=== PATIENT | male | born 1955 | race Caucasian/White ===

== ENCOUNTER 2023-06-15 09:36 | Outpatient (OUT) | payer MEDICARE, SELFPAY ==
--- NOTE | 2023-06-15 09:37 | VEIN_ITS ---
Patient Name: DEE VINES MR#: [id number] : 1955 Exam Date: 06/15/2023 Ordering Doctor: Non-Staff Physician RADIOLOGY REPORT PROCEDURE: [facility] - OFFICE VISIT INITIAL COMPARISON: None. PROGRESS NOTES: 68-year-old male who presents with a 20 year history of lower extremity pain swelling and extensive varicose veins. The patient's left leg is worse than the right. The patient complains of pain and swelling. The patient's symptoms are exacerbated by prolonged sitting and standing and partially relieved by rest, leg elevation, exercise and compression stockings. The patient does exercise at least 3 times per week. The patient denies any signs and symptoms to suggest arterial ischemia. The patient describes a family history significant for varicose veins in his mother. Type 2 diabetes in brother. Cancer heart disease in his father. Occasional social alcohol use. The patient has never smoked. No illicit drug use. Prior medical history significant for hypertension, hypercholesterolemia. Patient has had a cholecystectomy. No history of deep venous thrombus or pulmonary embolus. See separate history and physical for medication list. No prior treatment for varicose or spider veins. Nursing notes were reviewed. After history and physical exam I discussed at length the pathophysiology of venous hypertension and possible treatments, therapies and strategies available. We discussed at length the importance of elevating the lower extremities above the level of the heart, increased physical activity and compression stocking use. We discussed alternatives including surgical ligation and stripping and phlebectomy. We discussed intravenous laser ablation, micro foam chemical ablation and injection sclerotherapy at length. Risks, benefits and alternatives were discussed. The patient's questions were answered Ultrasound venous reflux study performed the same day was discussed at length with the patient. The report demonstrates moderate to severe bilateral great saphenous vein venous insufficiency. Moderate bilateral small saphenous vein venous insufficiency. Bilateral incompetent perforating veins. Bilateral incompetent varicose veins PHYSICAL EXAM: The right leg demonstrates moderate scattered varicose reticular and spider veins along the thigh, lower leg, ankle and foot. Mild hemosiderin staining. Mild subcutaneous edema. No active ulceration. The left leg demonstrates extensive scattered varicose, reticular and spider veins along the thigh, lower leg, ankle and foot, most significant along the medial lower leg. Moderate hemosiderin staining. Mild subcutaneous edema. No active ulceration. Both thighs, legs and feet were symmetrically warm to the touch. Good posterior tibial and dorsalis pedis pulses were present bilaterally. VEIN/VC Facility EST Comprehensive IMPRESSION: 1. Bilateral great saphenous , bilateral small saphenous and bilateral perforating venous insufficiency 2. Moderate right and severe left incompetent lower extremity varicose veins 3. Mild bilateral lower extremity subcutaneous edema 4. No definite flow significant arterial disease 5. CEAP: C4a, Ep, Asp, Pr PLAN: 1. Endovenous laser ablation left great saphenous vein followed by right great saphenous vein followed by left small saphenous vein 2. Micro foam chemical ablation bilateral incompetent varicose veins 3. Long-term use of bilateral knee or thigh-high 20-30 mm compression stockings 4. Elevated legs and continued physical activity for symptomatic relief Nurse notes, history and physical were reviewed and confirmed, see attached forms. The nurse was present throughout the physical exam and consultation Dictated by: Kota Crook MD on 06/15/2023 at 12:17 Approved by: Kota Crook MD on 06/15/2023 at 12:22
--- NOTE | 2023-06-15 09:38 | VEIN_ITS ---
Patient Name: DEE VINES MR#: [id number] : 1955 Exam Date: 06/15/2023 Ordering Doctor: NON-STAFF PHYSICIAN RADIOLOGY REPORT PROCEDURE: VC EXT VENOUS REFLUX ROHITH LMTD COMPARISON: None. INDICATIONS: I83.813 Bilateral painful varicose veins TECHNIQUE: Duplex imaging of the lower extremity to assess the deep and superficial venous system for the presence of deep or superficial venous incompetence and to document the location and severity of disease. The study includes evaluation of the great saphenous vein (GSV), anterior accessory saphenous vein (AASV) and small saphenous vein (SSV). Patient scanned in reverse Trendelenburg and standing. FINDINGS: RIGHT LOWER EXTREMITY: Saphenofemoral Junction Reflux: Yes 10.2mm 3.4 sec GSV: Diam (mm) Reflux/ Time (sec) Proximal Thigh 8.5 Yes 2.6 Mid Thigh 6.5 Yes 2.2 Distal Thigh 7.1 Yes 1.5 Prox Calf 4.5 Yes 1.8 Mid Calf 3.5 Yes 2.1 Saphenopopliteal Junction Reflux: 4.0mm No SSV: Proximal Calf 2.5 Yes 1.4 Mid Calf 3.6 Yes 1.1 AASV: Not present Thrombi: No acute or chronic thrombus visualized Compressibility: Normal Flow: Reflux visualized in FV. Preforator: Mid/med calf 1.8mm with 0s reflux. Tech Note: Incompetent GSV. Patent varicose vein medial knee 7.0mm with 2.4s reflux. Patent varicose vein dist/med thigh 8.2mm with 1.4s reflux. LEFT LOWER EXTREMITY: Saphenofemoral Junction Reflux: Yes 13.9 mm 3.7 sec GSV: Diam (mm) Reflux/Time (sec) Proximal Thigh 11.9 Yes 3.2 Mid Thigh 14.5 Yes 3.1 Distal Thigh 9.9 Yes 2.1 Prox Calf 9.5 Yes 2.9 Mid Calf 5.7 Yes 1.0 Saphenopopliteal Junction Relux: 6.0 mm Yes 2.7 SSV: Proximal Calf 5.5 Yes 2.1 Mid Calf 3.8 Yes 1.2 AASV: Not present Thrombi: No acute or chronic thrombus visualized Compressibility: Normal Flow: Reflux visualized in FV. Event Host: Dist/med calf 6.7mm with 1.4s reflux. Mid/med thigh 4.9mm with 2.0s reflux. Tech Note: Incompetent GSV and SSV. Patent varicose vein mid/med calf that extends throughout entire calf measures 11.2mm with 2.9s reflux. Patent varicose vein prox/med calf 14.0mm with 3.7s reflux. CONCLUSION: 1. Moderate to severe bilateral great saphenous vein venous insufficiency with dilatation and saphenofemoral junction reflux 2. Moderate bilateral small saphenous vein venous insufficiency with dilatation 3. Bilateral incompetent perforating veins 4. Bilateral incompetent varicose veins Dictated by: Kota Crook MD on 06/15/2023 at 10:37 Approved by: Kota Crook MD on 06/15/2023 at 10:38
== END 2023-06-15 09:37 | disposition home or self-care (01) ==
PROVIDERS: PCP Radiology Diagnostic Radiology
DX: I83.892 Varicose veins of left lower extremity with other complications (principal)
CPT/HCPCS: 93970; G0463

== ENCOUNTER 2023-06-27 07:41 | Outpatient (OUT) | payer MEDICARE, SELFPAY ==
--- OUTSIDE RECORDS SUMMARY | 2023-06-27 07:43 | XMS_ITS | CCD ---
Author Name Unknown Address [address] [place] [address] Organization [facility] Care Team Providers Care Soloist Dancer Name Role Phone BRITTANIE ZOHRA Unavailable Unavailable VASCHAK, ZOHRA Unavailable Unavailable VASCHAK, ZOHRA Unavailable Unavailable VASCHAK, ZOHRA J Unavailable Unavailable VASCHAK, ZOHRA J Unavailable Unavailable VEDA JOHNSON Unavailable Unavailable VASCHAK, ZOHRA J Unavailable Unavailable VASCHAK, ZOHRA J Unavailable Unavailable VASCHAK, ZOHRA J Unavailable Unavailable VASCHAK, ZOHRA J Unavailable Unavailable VASCHAK, ZOHRA J Unavailable Unavailable VASCHAK, ZOHRA J Unavailable Unavailable VASCHAK, ZOHRA J Unavailable Unavailable VASCHAK, ZOHRA J Unavailable Unavailable VASCHAK, ZOHRA J Unavailable Unavailable VASCHAK, ZOHRA J Unavailable Unavailable VASCHAK, ZOHRA J Unavailable Unavailable VASCHAK, ZOHRA J Unavailable Unavailable VASCHAK, ZOHRA J Unavailable Unavailable VASCHAK, ZOHRA J Unavailable Unavailable VASCHAK, ZOHRA J Unavailable Unavailable VASCHAK, ZOHRA J Unavailable Unavailable VASCHAK, ZOHRA J Unavailable Unavailable VASCHAK, ZOHRA J Unavailable Unavailable VASCHAK, ZOHRA J Unavailable Unavailable VASCHAK, ZOHRA J Unavailable Unavailable Hellen De La O Unavailable DO Zohra Shah Primary Care Provider MD Kvng Grissom Attending Provider Kvng Grissom Attending Unavailable Zohra Shah Primary Care Unavailable Kvng Grissom Admitting Unavailable Zohra Shah Primary Care Unavailable Kvng Grissom Admitting Unavailable Kvng Grissom Attending Unavailable ZOHRA SHAH Attending Unavailable VASCHAK, ZOHRA Popeye Referring Unavailable Allergies Allergy Classification Reported Allergen(s) Allergy Type Date of Onset Reaction(s) Facility (1 source) Penicillins Drug allergy (disorder) 07-02-2019 [facility] Repository Medications Current Medications Medication Drug Class(es) Dates Sig (Normalized) Sig (Original) atorvastatin 40 mg oral tablet (1 source) HMG-CoA Reductase Inhibitor Start: 07-02-2019 take 40 mg by mouth once daily Atorvastatin Active 40 MG PO Daily July 02, 2019 1:00am lisinopril 5 mg oral tablet (1 source) Angiotensin Converting Enzyme Inhibitor Start: 07-02-2019 take 5 mg by mouth once daily Lisinopril Active 5 MG PO Daily July 02, 2019 1:00am Suprep Bowel Prep Kit 17.5-3.13-1.6 GM/180ML (2 sources) Start: 06-25-2019 Suprep Bowel Prep Kit 17.5-3.13-1.6 GM/180ML 177 ML BOTTLE AT 4 PM AND ONE BOTTLE AT 11 PM DAY PRIOR TO PROCEDURE Orally Twice a day for 1 day(s) Jun, Active Problems Active Problems Problem Classification Problem Date Documented Da te Episodic/Chronic Coronary atherosclerosis and other heart disease (2 sources) Atherosclerotic heart disease of [place] coronary artery without angina pectoris; Translations: [Coronary atherosclerosis due to lipid rich plaque] Onset: 02-17-2017 Chronic Coronary atherosclerosis and other heart disease (1 source) Coronary atherosclerosis and other heart disease Onset: 01-24-2017 Essential hypertension (1 source) Essential (primary) hypertension; Translations: [Essential (primary) hypertension] Onset: 01-24-2017 Chronic Essential hypertension (2 sources) Essential hypertension Onset: 01-24-2017 Immunizations and screening for infectious disease (2 sources) Encounter for immunization Onset: 09-24-2021 Resolved: 09-24-2021 Episodic Other connective tissue disease (2 sources) Impingement syndrome of left shoulder; Translations: [Impingement syndrome of left shoulder] Onset: 12-27-2017 Episodic Other gastrointestinal disorders (1 source) Stool DNA-based colorectal cancer screening positive; Translations: [Other fecal abnormalities] 07-02-2019 Episodic Spondylosis; intervertebral disc disorders; other back problems (2 sources) Cervicalgia; Translations: [Cervicalgia] Onset: 12-27-2017 Episodic Unclassified (1 source) Family hx of ischem heart dis and oth dis of the circ sys / Z82.49(ICD-9) Onset: 01-24-2017 Unclassified (1 source) Personal history of nicotine dependence / Z87.891(ICD-9) Onset: 01-24-2017 Unclassified (1 source) Pure hypercholesterolemia, unspecified / E78.00(ICD-9) Onset: 01-24-2017 Unclassified (1 source) Encounter for immunization; Translations: [Encounter for immunization] Onset: 03-08-2022 Unclassified (1 source) Z23 - Encounter for immunization; Translations: [Z23 - Encounter for immunization] Onset: 09-24-2021 Past or Other Problems Problem Classification Problem Date Documented Da te Episodic/Chronic Other lower respiratory disease (1 source) Other forms of dyspnea; Translations: [Other forms of dyspnea] Onset: 02-17-2017 Episodic Results Test Name Value Interpretation Reference Range Facility CARDIAC STRESS TESTon 2016 CARDIAC STRESS TEST [facility] [address] [address] CARDIAC STRESS TESTPATIENT NAME: DEE VINES : 1955MED REC NO: [id number] ROOM:ACCOUNT NO: [id number] ADMISSIONDATE: 02/17/2017PROVIDER: Dee BrisenoATE OF STUDY: 02/17/2017TREADMILL STRESS TESTINDICATION: CHEST [id number] % of maximum predicted heart rate: 157 bpm.85 % of maximum predicted heart rate: 133 bpm.Resting heart rate: 51 bpm.Maximum heart rate achieved: 166 bpm.% of age predicted maximum: 100+ %.Resting blood pressure: 136/82 mmhg.Peak blood pressure: 178/87 mmHg.Mets: 15.3.Total time on treadmill: 13 minutes.Resting EKG: Normal.Stress heart response: Normal response.Blood pressure response: Appropriate.Stress EKGs: Normal.No chest pain during stress.No ischemic Ekg changes.IMPRESSION:NEGATIVE TREADMILL STRESS TEST.THE NUCLEAR SCAN TO FOLLOW.DEE HANCOCKORD: 02/17/2017 10:58:57 MO/BB Normal [facility] NM MYOCARDIAL SPECT REST EXE RCISE OR RXon 02-17-2017 NM MYOCARDIAL SPECT REST EXERCISE OR RX EXAMINATION:MYOCARDIAL PERFUSION IMAGING02/17/2017TECHNIQUE:For the rest study, 11.3 mCi of Tc 99 labeled sestamibi were injected. SPECTimages were acquired.The patient exercised on a treadmill under cardiology supervision. Adequatestress was achieved, percent of maximum heart rate was 105%.After stress, 36.6 mCi of Tc 99 labeled sestamibi were injected. SPECTimages with ECG gating were acquired.COMPARISON:None Available.HISTORY:ORDERING SYSTEM PROVIDED HISTORY: Breathlessness on exertionTECHNOLOGIST PROVIDED HISTORY:Ordering Physician Provided Reason for Exam: Shortness of breathOrdering Physician Provided Reason for Exam: Shortness of BreathAcuity: UnknownType of Exam: UnknownPalpitations, hypertension, family history of heart diseaseFINDINGS:Images interpreted on [employer] system and [employer] software.There is normal distribution of radiotracer throughout the myocardium withoutevidence for a significant reversible or fixed perfusion defect.Perfusion scores are visually adjusted to account for artifact.Summed stress score: 0Summed rest score: 0Summed reversibility score: 0Function:End diastolic volume: 82mLLeft ventricular ejection fraction: 58%Wall motion abnormalities: None.TID score: 0.85 (Scores greater than 1.39 are considered elevated forLexiscan stress with Tc99m)IMPRESSION: 1. No evidence for myocardial ischemia/infarction.2. Calculated left ventricular ejection fraction of 58%.3. No wall motion abnormality.4. Risk stratification: LowNotes concerning risk stratification:Risk stratification incorporates both clinical history and some testingresults. Final risk determination is the responsibility of the orderingprovider as other patient information and test results may increase ordecrease the risk assessment reported for this examination.Risk stratification criteria are adapted from Noninvasive RiskStratification criteria from Garcia et. Al,ACC/AATS/AHA/ASE/ASNC/SCA I/SCCT/STS 2017 Appropriate Use Criteria ForCoronary Revascularization in Patients With Stable Ischemic Heart DiseaseNORTHFIELD CITY [facility] Volume 69, Issue 17October 2016High risk (>3% annual or [place]) 1. Severe resting LV dysfunction (LVEF<35%) not readily explained by non coronary causes 2. Resting perfusionabnormalities greater than 10% of the myocardium in patients without priorhistory or evidence of MI3. Stress-induced perfusion abnormalitiesencumbering greater than or equal to 10% myocardium or stress segmentalscores indicating multiple vascular territories with abnormalities 4.Stress-induced LV dilatation (TID ratio greater than 1.19 for exercise andgreater than 1.39 for regadenoson)Intermediate risk (1% to 3% annual or [place]) 1. Mild/moderate resting LVdysfunction (LVEF 35% to 49%) not readily explained by non coronary causes.2. Resting perfusion abnormalities in 5%-9.9% of the myocardium in patientswithout a history or prior evidence of [place] 3. Stress-induced perfusionabnormality encumbering 5%-9.9% of the myocardium or stress segmental scoresindicating 1 vascular territory with abnormalities but without LV dilation 4.Small wall motion abnormality involving 1-2 segments and only 1 coronary bed.Low Risk (Less than 1% annual or [place]) 1. Normal or small myocardialperfusion defect at rest or with stress encumbering less than 5% of themyocardium.Interpreted by:ALEX Marleyigned by:Jesús Caro MD02/17/17Final result Normal [facility] OVER READ - NCon 01-24-2017 OVER READ - NC DATE OF EXAM: Jan 24 2017 2:50PMCLINICAL HISTORY/ Name: ISI VINESTUDY:OVER READ- NC; 01/24/2017 2:50 pmINDICATION:score. Hypertension. Family history of heart disease. Former smoker. Screening.COMPARISON:None. CESSION NUMBER(S):[id number] CLINICIAN:ZOHRA SALGUERO:Contiguous unenhanced axial images were obtained through the mid chest for calcium score evaluation. Calcium score portion will be interpreted separately. Images are submitted for over-read.FINDINGS:No lymphadenopathy is seen. No pericardial effusion. Included esophageal segment is unremarkable. Included portion of the upper abdomen is unremarkable. Minimal basilar atelectasis is present. No pleural effusion or pneumothorax. Minimal anterior endplate spurring present in the lower thoracic spine.CONCLUSION: IMPRESSION:No significant incidental findings.This interpretation, provided by the radiologists of [facility], excludes evaluation of the cardiovascular system, which iscovered in a separate report issued by the ordering cardiologists. The radiologists of [facility] have no responsibilityfor evaluating the structures of the cardiovascular system. Normal [facility] Healthcar e Encounters Encounter Date Encounter Type Care Provider Facility Start: 05-24-2023 End: 05-24-2023 ambulatory ZOHRA SHAH Not Available Start: 03-08-2022 End: 03-08-2022 ambulatory Zohra Rodgersguerlinenigel Facility:[facility] Start: 03-08-2022 End: 03-08-2022 Patient encounter procedure DO Zohra Shah Work Phone: [facility] Start: 03-08-2022 ([facility] C Vac) [facility] Co vid Vaccine [facility] Start: 03-08-2022 End: 03-08-2022 ambulatory DO Zohra Shah Work Phone: [facility] Work Phone: Start: 09-24-2021 ([facility] C Vac) [facility] Co vid Vaccine Hellen [facility] Start: 09-24-2021 End: 09-24-2021 ambulatory Kvng Grissom [facility] [employer] Other Start: 01-26-2018 End: 01-27-2018 Patient encounter [facility] Start: 01-24-2018 End: 01-25-2018 Patient encounter [facility] Start: 01-12-2018 End: 01-13-2018 Patient encounter VEDA JOHNSON [facility] Start: 01-09-2018 End: 01-10-2018 Patient encounter [facility] Start: 01-05-2018 End: 01-06-2018 Patient encounter [facility] Start: 01-03-2018 End: 01-04-2018 Patient encounter GOLE[facility] Start: 12-27-2017 End: 12-28-2017 Patient encounter [facility] Start: 02-17-2017 End: 02-18-2017 Patient encounter [facility] Start: 01-24-2017 Ambulatory ZOHRA RODGERSGUERLINENigel Facility :[id number] Start: 01-24-2017 Ambulatory Facility:[id number] Procedures Date Procedure Procedure Detail Performing Clinician Start: 02-20-2017 STRESS TEST REPORT MANA SHAH Start: 02-17-2017 Myocardial spect mul tiple studies ZOHRA SHAH Start: 02-17-2017 (GXT) STRESS TEST EX ERCISE W OUT MYOVIEW ZOHRA SHAH Immunizations Immunization Date Immunization Notes Care Provider Fa cility 03-08-2022 COVID-19 Pfizer (bivalent) Hellen De La O Other [facility] Other 09-24-2021 COVID-19 Moderna Hellen De La O Other [facility] Other Payers Date Payer Category Payer Self-pay [id number] 2021 Unknown [id number] 2018 Medicare [id number] 2014 Unknown [id number] 1955 Unknown [id number] Private Health Insurance [facility] [id number] Unknown CACLIUM SCROING Unknown [id number] Unknown [id number] Social History Date Type Detail Facility Sex Assigned At [facility] [employer] Other Start: [facility]-02-[facility] Start: 1955 Sex Assigned At Male F [facility] Evaluation note 03-08-2022 Note Date & Type Note Facility 03-08-2022 Evaluation note Encounter Date Diagnosis Assessment Notes Feb, Encounter for immunization (ICD-10 - Z23) Patient presents for COVID-19 vaccination BOOSTER. Pre-screening form answers evaluated with patient. Patient denies current illness or allergic reaction to component of COVID-19 vaccine. Patient provided with current copy of EUA. [facility] Other Evaluation note 09-24-2021 Note Date & Type Note Facility 09-24-2021 Evaluation note Encounter Date Diagnosis Assessment Notes Sep, Encounter for immunization (ICD-10 - Z23) Patient presents for COVID-19 vaccination BOOSTER. Pre-screening form answers evaluated with patient. Patient denies current illness or allergic reaction to component of COVID-19 vaccine. Patient provided with current copy of EUA. [facility] Other Evaluation note Note Date & Type Note Facility Evaluation note No assessment information availa [facility] Work Phone: Summary Purpose Family History No Family History Records Found Relationship Condition Age at Onset Recorded Date/T kaleb brother Diabetes mellitus Unknown father Hypertension Unknown Not Specified Hypertension Unknown Advance Directives No Advanced Directives Records Found Advance Directive Response Recorded Date/ Time Advance Directives No December 26 9:52am Additional Source Comments (unrecognized sect ion and content) No Status Records FoundNo Status Records FoundNo Status Records FoundNo Status Records FoundNo Status Records Found INFORMATION SOURCE (unrecogn ized section and content) DATE CREATED AUTHOR 12/06/2017 [facility] DATE CREATED AUTHOR AUTHOR'S ORGANIZ ATION 12/06/2017 [facility] DATE CREATED AUTHOR AUTHOR'S ORGANIZ ATION 01/27/2018 [facility] DATE CREATED AUTHOR AUTHOR'S ORGANIZ ATION 03/15/2022 [facility] DATE CREATED AUTHOR AUTHOR'S ORGANIZ ATION 05/26/2023 [facility] EPIC REASON FOR VISIT (unrecogniz ed section and content) MODERNA VACCINE BOOSTER-2PFI ZER BIVALENT BOOSTER Care Teams (unrecognized sec tion and content) Team Status: Inactive Member Role Status Dates Zohra Shah DO Primary Care Provider Active Kvng Grissom MD Attending Provider Active Team Status: Active Member Role Status Dates Zohra Shah DO Primary Care Provider Active Goals (unrecognized section and content) Goals may be documented in a n alternate section FOR RECORDS PERTAINING TO PATIENTS WHO ARE OR HAVE BEEN ENROLLED IN A CHEMICAL DEPENDENCY/SUBSTANCEABUSE PROGRAM, SOME INFORMATION MAY BE OMITTED. This clinical summary was aggregated from multiple sources. Caution should be exercised in using it in the provision of clinical care. This summary normalizes information from multiple sources, and as a consequence, information in this document may materially change the coding, format and clinical context of patient data. In addition, data may be omitted in some cases. CLINICAL DECISIONS SHOULD BE BASED ON THE PRIMARY CLINICAL RECORDS. [facility] [employer] [facility]. provides no warranty or guarantee of the accuracy or completeness of information in this document.
--- NOTE | 2023-06-27 07:45 | VEIN_ITS ---
[address] [address] Patient Name: DEE VINES MRN: [id number] date: 1955 Sex: M Assigned Patient Location: Current Patient Location: Accession/Order Number: [id number] Exam Date: 06/27/2023 07:54 Report Date: 06/27/2023 08:51 At the request of: NORBERTO FLETCHER Procedure: VC Endovenous Ablation 1VeinLT EXAMINATION: VC Endovenous Ablation 1Vein right great saphenous vein HISTORY: Pain due to varicose veins of bilateral legs I83.813 COMPARISON: No relevant comparison available. TECHNIQUE: The risks and benefits of the procedure had been previously discussed, and were rediscussed at length. Informed written consent was obtained. Arelis Suazo and Noman Francis assisted. Time out procedure was performed. The left lower extremity was prepared and draped in the usual sterile fashion to allow knee flexion in the sterile field. Duplex ultrasound probe was draped in a sterile cover, sterile transmission gel was used. Venous mapping was performed with the areas of dilation and large tributaries marked. The total length was 44 cm from the entry 6 cm below the knee to 3 cm below the saphenofemoral junction. The great saphenous vein below this area was serpiginous and not amenable to laser ablation. The diameter of the greater saphenous vein ranged from 10-12 mm. A 30 gauge needle and 1% buffered lidocaine was used to anesthetize the entry site. A 4 mm incision was made with a scalpel and the saphenous vein was entered percutaneously under direct ultrasound guidance with a micropuncture set, a single stick was successful in gaining access. A micro-guide wire was inserted and the needle removed. A micro-set including a dilator was inserted over the microwire and the needle and dilator were removed. A 0.018 guide wire was inserted through the micro-set and threaded through the saphenous vein to the saphenofemoral junction. The dilator was removed and an introducer sheath was inserted over the wire until the end of the sheath entered the saphenofemoral junction. The dilator and wire were removed and the 600 micron fiber was introduced and placed and positioned so that it extended beyond the sheath and was 3 cm peripheral to the saphenofemoral femoral junction. Final position of the fiber was determined by ultrasound guidance and duplex imaging. Tumescent anesthetic was delivered by ultrasound guidance. 225 cc of fluid was delivered along the entire course of the saphenous vein. The solution consisted of 1000 cc of normal saline with 40 mL of 1% lidocaine and 20 mL of sodium bicarbonate. A final positioning check was made. The energy source was turned on by means of the foot pedal and the fiber and sheath were withdrawn. The total number of Joules delivered was 2931. The laser was active for 366 seconds under continuous pulse, average laser use of 8 J. Laser start time 840 AM 06/27/2023. Laser stop time 847AM 06/27/2023. A duplex ultrasound revealed compressibility and flow at the saphenofemoral junction immediately after the procedure. Hemostasis at the access site was achieved. The skin incision of the saphenous vein was closed with a 4 x 4. A compression stocking was applied. Postop instructions were given. A follow up appointment was recommended and scheduled. The patient tolerated the procedure well and was discharged in good condition . VEIN/VC Endovenous Ablation 1VeinLT IMPRESSION: Technically successful endovenous laser ablation of the left great saphenous vein Electronically authenticated by: NORBERTO FLETCHER Date: 06/27/2023 08:51
[2023-06-27] MEDS: LIDOCAINE HCL 1% 100 MG/10 ML MDV INJ (08:10)
[2023-06-27] MEDS: 0.9 % SODIUM CHLORIDE 500 ML, LIDOCAINE HCL 20 ML, SODIUM BICARBONATE 10 MEQ INJ (08:11)
== END 2023-06-27 07:42 | disposition home or self-care (01) ==
LOC: VC 07:41
PROVIDERS: PCP Radiology Diagnostic Radiology; Visit Provider Radiology Diagnostic Radiology
DX: I83.813 Varicose veins of bilateral lower extremities with pain (principal)
CPT/HCPCS: 36478

== ENCOUNTER 2023-07-04 08:02 | Outpatient (OUT) | payer MEDICARE, SELFPAY ==
--- NOTE | 2023-07-04 | VEIN_ITS ---
Patient Name: DEE VINES MR#: [id number] : 1955 Exam Date: 07/04/2023 Ordering Doctor: DR KOTA CROOK M.D. RADIOLOGY REPORT PROCEDURE: VC EXT VENOUS LT LIMITED COMPARISON: None. INDICATIONS: Phlebitis of superficial vein of lt lower extremity I80.02 TECHNIQUE: Lower extremity brown scale and Duplex Doppler evaluation of the deep venous system from the inguinal ligament through the calf veins. FINDINGS: REGION: Left lower extremity. THROMBI: Negative for DVT. Heat induced thrombus visualized 1.5cm from the SFJ. The heat induced thrombus extends from groin to proximal calf. COMPRESSIBILITY: Non-compressible segments corresponding to thrombus FLOW: Areas of no flow corresponding to thrombus CONCLUSION: Post ablation occlusion of the treated left great saphenous vein with heat induced thrombus 1.5 cm from the saphenofemoral junction Dictated by: Kota Crook MD on 07/04/2023 at 08:40 Approved by: Kota Crook MD on 07/04/2023 at 08:40
--- NOTE | 2023-07-04 | VEIN_ITS ---
Patient Name: DEE VINES MR#: [id number] : 1955 Exam Date: 07/04/2023 Ordering Doctor: DR KOTA CROOK M.D. RADIOLOGY REPORT PROCEDURE: VC FACILITY EST LMTD VEIN CENTER - OFFICE VISIT FOLLOW UP COMPARISON: None. PROGRESS NOTES: The patient reports some mild pain and tenderness of the left thigh following intravenous laser ablation of the left great saphenous vein. The patient has worn his compression stocking. The patient did not require oral analgesics. The patient has tried exercise Physical exam demonstrates a 15 x 10 cm area of mild bruising in the left medial mid to distal thigh likely related to tumescence injection. Thrombosed left great saphenous vein can be partially palpated. No erythema or warmth to suggest cellulitis or thrombophlebitis. No active ulceration. Review of the ultrasound performed the same day demonstrates occlusive thrombus extending throughout the treated left great saphenous vein. Heat induced thrombus is 1.5 cm from the saphenofemoral junction. No deep vein thrombus. The patient expressed a desire to proceed with treatment of incompetent right great saphenous vein with intravenous laser ablation. VEIN/VC Facility EST LMTD IMPRESSION: 1. Successful ablation of the left great saphenous vein 2. Persistent incompetent right great saphenous vein. PLAN: Intravenous laser ablation right great saphenous vein Nurse notes, history and physical were reviewed and confirmed, see attached forms. The nurse was present throughout the physical exam and consultation Dictated by: Kota Crook MD on 07/04/2023 at 08:43 Approved by: Kota Crook MD on 07/04/2023 at 08:44
--- OUTSIDE RECORDS SUMMARY | 2023-07-04 08:04 | XMS_ITS | CCD ---
Author Name Unknown Address [address] [place] [address] Organization [facility] Care Team Providers Care Child Welfare Social Worker Name Role Phone BRITTANIE ZOHRA Unavailable Unavailable [...] (1 source) Penicillins Drug allergy (disorder) 07-02-2019 [facility] Repository Medications Current Medications Medication Drug [...] disease (2 sources) Atherosclerotic heart disease of [place] coronary artery without angina pectoris; Translations: [Coronary [...] CARDIAC STRESS TESTon 2016 CARDIAC STRESS TEST [facility] [address] [facility] [place] [address] CARDIAC STRESS TESTPATIENT NAME: DEE VINES : 1955MED REC NO: [id number] ROOM:ACCOUNT NO: [id number] ADMISSIONDATE: 02/17/2017PROVIDER: Dee BrisenoATE OF STUDY: 02/17/2017TREADMILL STRESS TESTINDICATION: CHEST [id number] % of maximum predicted heart rate: 157 [...] TO FOLLOW.DEE HANCOCKORD: 02/17/2017 10:58:57 MO/BB Normal [facility] NM MYOCARDIAL SPECT REST EXE RCISE OR [...] family history of heart diseaseFINDINGS:Images interpreted on GlowpointS system and Suite[employer] software.There is normal distribution of radiotracer throughout [...] Rev[facility] in [facility] Volume 69, Issue 17October 2016High risk (>3% annual or [place]) 1. Severe resting LV dysfunction (LVEF<35%) not [...] regadenoson)Intermediate risk (1% to 3% annual or [place]) 1. Mild/moderate resting LVdysfunction (LVEF 35% to 49%) not readily explained by non coronary causes.2. Resting perfusion abnormalities in 5%-9.9% of the myocardium in patientswithout a history or prior evidence of [place] 3. Stress-induced perfusionabnormality encumbering 5%-9.9% of the myocardium or stress segmental scoresindicating 1 vascular territory with abnormalities but without LV dilation 4.Small wall motion abnormality involving 1-2 segments and only 1 coronary bed.Low Risk (Less than 1% annual or [place]) 1. Normal or small myocardialperfusion defect at rest or with stress encumbering less than 5% of themyocardium.Interpreted by:ALEX Marleyigned by:Jesús Caro MD02/17/17Final result [facility] OVER READ - NCon 01-24-2017 OVER READ - NC DATE OF EXAM: Jan 24 2017 2:50PMCLINICAL HISTORY/ Name: ISI VINESTUDY:OVER READ- NC; 01/24/2017 2:50 pmINDICATION:score. Hypertension. Family history of heart disease. Former smoker. Screening.COMPARISON:None. CESSION NUMBER(S):[id number] CLINICIAN:ZOHRA SALGUERO:Contiguous unenhanced axial images were obtained [...] findings.This interpretation, provided by the radiologists of [facility], excludes evaluation of the cardiovascular system, which iscovered in a separate report issued by the ordering cardiologists. The radiologists of [facility] have no responsibilityfor evaluating the structures of the cardiovascular system. Normal [facility] Health[facility] e Encounters Encounter Date Encounter Type Care Provider Facility Start: 05-24-2023 End: 05-24-2023 ambulatory ZOHRA SHAH Not Available Start: 03-08-2022 End: 03-08-2022 ambulatory Zohra Rodgersguerlinenigel Facility:[facility] Start: 03-08-2022 End: 03-08-2022 Patient encounter procedure DO Zohra Shah Work Phone: [facility]-Cov[facility] Vaccine Off Site Start: 03-08-2022 ([facility] C Vac) [facility] Co vid Vaccine [facility] Start: 03-08-2022 End: 03-08-2022 ambulatory DO Zohra Shah Work Phone: [facility] Work Phone: Start: 09-24-2021 ([facility] C Vac) [facility] Co vid Vaccine Hell[facility] Start: 09-24-2021 End: 09-24-2021 ambulatory Kvng [place] [facility] [employer] Other Start: 01-26-2018 End: 01-27-2018 Patient encounter [facility] Start: 01-24-2018 End: 01-25-2018 Patient encounter [facility] Start: 01-12-2018 End: 01-13-2018 Patient encounter VEDA JOHNSON [facility] Start: 01-09-2018 End: 01-10-2018 Patient encounter [facility] Start: 01-05-2018 End: 01-06-2018 Patient encounter [facility] Start: 01-03-2018 End: 01-04-2018 Patient encounter [facility] Start: 12-27-2017 End: 12-28-2017 Patient encounter [facility] Start: 02-17-2017 End: 02-18-2017 Patient encounter [facility] Start: 01-24-2017 Ambulatory ZOHRA RODGERSGUERLINENigel Facility :[id number] [...] Pfizer (bivalent) Hellen [facility] Other [employer] Other 09-24-2021 COVID-19 Moderna [facility]en [facility] Other [employer] Other Payers Date Payer Category Payer Self-pay [id number] 2021 Unknown [id number] 2018 Medicare [id number] 2014 Unknown [id number] 1955 Unknown [id number] Private Health Insurance [facility] [id number] Unknown CACLIUM SCROING Unknown [id number] Unknown [id number] Social History Date Type Detail Facility Sex Assigned At [facility] [employer] Other [facility]: [facility] Start: 1955 Sex Assigned At Male [facility] Evaluation note 03-08-2022 Note Date & Type Note Facility 03-08-2022 Evaluation note Encounter Date Diagnosis Assessment Notes Feb, Encounter for immunization (ICD-10 - Z23) Patient presents for COVID-19 vaccination BOOSTER. Pre-screening form answers evaluated with patient. Patient denies current illness or allergic reaction to component of COVID-19 vaccine. Patient provided with current copy of EUA. [employer] Other Evaluation note 09-24-2021 Note Date & Type Note Facility 09-24-2021 Evaluation note Encounter Date Diagnosis Assessment Notes Sep, Encounter for immunization (ICD-10 - Z23) Patient presents for COVID-19 vaccination [employer]ER. Pre-screening form answers evaluated with patient. Patient denies current illness or allergic reaction to component of COVID-19 vaccine. Patient provided with current copy of EUA. [employer] Other Evaluation note Note Date & Type Note Facility Evaluation note No assessment information availa [facility] Work Phone: Summary Purpose Family [...] and content) DATE CREATED AUTHOR 12/06/2017 [facility] DATE CREATED AUTHOR AUTHOR'S ORGANIZ ATION 12/06/2017 [facility] DATE CREATED AUTHOR AUTHOR'S ORGANIZ ATION 01/27/2018 [facility] DATE CREATED AUTHOR AUTHOR'S ORGANIZ ATION 03/15/2022 [facility] DATE CREATED AUTHOR AUTHOR'S ORGANIZ ATION 05/26/2023 [facility] EPIC REASON FOR VISIT (unrecogniz [...] BE BASED ON THE PRIMARY CLINICAL RECORDS. [facility] [employer] [facility]. provides no warranty or guarantee of the accuracy or completeness of information in this document.
== END 2023-07-04 08:03 | disposition home or self-care (01) ==
LOC: VC 08:02
PROVIDERS: PCP Radiology Diagnostic Radiology; Visit Provider Radiology Diagnostic Radiology
DX: I80.02 Phlebitis and thrombophlebitis of superficial vessels of left lower extremity (principal)
CPT/HCPCS: 93971; G0463

== ENCOUNTER 2023-07-13 10:18 | Outpatient (OUT) | payer MEDICARE, SELFPAY ==
[2023-07-13] MEDS: LIDOCAINE HCL 1% 100 MG/10 ML MDV INJ (09:43)
[2023-07-13] MEDS: 0.9 % SODIUM CHLORIDE 500 ML, LIDOCAINE HCL 20 ML, SODIUM BICARBONATE 10 MEQ INJ (09:44)
--- NOTE | 2023-07-13 10:19 | VEIN_ITS ---
[address] [address] Patient Name: DEE VINES MRN: [id number] date: 1955 Sex: M Assigned Patient Location: Current Patient Location: Accession/Order Number: [id number] Exam Date: 07/13/2023 10:35 Report Date: 07/13/2023 11:49 At the request of: NORBERTO FLETCHER Procedure: VC Endovenous Ablation 1VeinRT EXAMINATION: VC Endovenous Ablation 1VeinRT HISTORY: Pain due to varicose veins of bilateral legs I83.813 The risks and benefits of the procedure had been previously discussed, and were rediscussed at length. Informed written consent was obtained. Noman Francis RN and Leann Suazo RDMS, RVT assisted. Time out procedure was performed. The right lower extremity was prepared and draped in the usual sterile fashion to allow knee flexion in the sterile field. Duplex ultrasound probe was draped in a sterile cover, sterile transmission gel was used. Venous mapping was performed with the areas of dilation and large tributaries marked. The total length was 63 cm from the entry 3 cm above the ankle to 3 cm below the Saphenofemoral junction. The diameter of the right great saphenous vein ranged from 8.5 mm. A 30 gauge needle and 1% buffered lidocaine was used to anesthetize the entry site. A 4 mm incision was made with a scalpel and the saphenous vein was entered percutaneously under direct ultrasound guidance with a micropuncture set, a single stick was successful in gaining access. A micro-guide wire was inserted and the needle removed. A micro-set including a dilator was inserted over the microwire and the needle and dilator were removed. A guide wire was inserted through the micro-set and guided through the saphenous vein to the saphenofemoral junction. The dilator was removed and an introducer sheath was inserted over the wire until the end of the sheath entered the saphenofemoral junction. The dilator and wire were removed and the 600 micron fiber was introduced and placed and positioned so that it extended beyond the sheath and was 3 cm distal to the saphenofemoral or saphenopopliteal junction. Final position of the fiber was determined by ultrasound guidance and duplex imaging. Tumescent anesthetic was delivered by ultrasound guidance. 250 cc of fluid was delivered along the entire course of the saphenous vein. The solution consisted of 1000 cc of normal saline with 40 mL of 1% lidocaine and 20 mL of sodium bicarbonate. A final positioning check was made. The energy source was turned on by means of the foot pedal and the fiber and sheath were withdrawn. The total number of Joules delivered was 3249. The laser was active for 406 seconds under continuous pulse, average laser use of 8 J. Laser start time 11:24 AM, 07/13/2023. Laser stop time 11:33 AM, 07/13/2023. A duplex ultrasound revealed compressibility and flow at the saphenofemoral junction immediately after the procedure. Hemostasis at the access site was achieved. The skin incision of the saphenous vein was closed with a 4 x 4. A compression stocking was applied. Postop instructions were given. A follow up appointment was recommended and scheduled. The patient tolerated the procedure well. Electronically authenticated by: SANDRO FLORES Date: 07/13/2023 11:49
--- OUTSIDE RECORDS SUMMARY | 2023-07-13 10:38 | XMS_ITS | CCD ---
Author Name Unknown Address [address] [facility], [place]) [address] [place] [address] Organization [facility] Care Team Providers Care Technical Consultant Name Role Phone BRITTANIE ZOHRA Unavailable Unavailable [...] Unavailable DO Zohra Shah Primary Care Provider [phone] MD Kvng Grissom Attending Provider [phone] Kvng Grissom Attending Unavailable Zohra Shah Primary Care Unavailable Kvng Grissom Admitting Unavailable Zohra Shah Primary Care Unavailable Kvng Grissom Admitting Unavailable Kvng Grissom Attending Unavailable ZOHRA SHAH Attending Unavailable VASCHAK, ZOHRA Popeye Referring Unavailable Allergies Allergy Classification Reported Allergen(s) Allergy Type Date of Onset Reaction(s) Facility (1 source) Penicillins Drug allergy (disorder) 07-02-2019 [facility] Repository Medications Current Medications Medication Drug Class(es) [...] disease (2 sources) Atherosclerotic heart disease of [place] coronary artery without angina pectoris; Translations: [Coronary [...] CARDIAC STRESS TESTon 2016 CARDIAC STRESS TEST [facility] [address] [address] CARDIAC STRESS TESTPATIENT NAME: DEE VINES : 1955MED REC NO: [id number] ROOM:ACCOUNT NO: [id number] ADMISSIONDATE: 02/17/2017PROVIDER: Dee BrisenoATE OF STUDY: 02/17/2017TREADMILL STRESS TESTINDICATION: CHEST [id number] % of maximum predicted heart rate: 157 [...] TO FOLLOW.DEE HANCOCKORD: 02/17/2017 10:58:57 MO/BB Normal [facility] NM MYOCARDIAL SPECT REST EXE RCISE OR [...] family history of heart diseaseFINDINGS:Images interpreted on MaraquiaS system and videoNEXT software.There is normal distribution of radiotracer throughout [...] Revascularization in Patients With Stable Ischemic Heart [facility]RA[facility] Volume 69, Issue 17October 2016High risk (>3% annual or OR) 1. Severe resting LV dysfunction (LVEF<35%) not [...] regadenoson)Intermediate risk (1% to 3% annual or OR) 1. Mild/moderate resting LVdysfunction (LVEF 35% to 49%) not readily explained by non coronary causes.2. Resting perfusion abnormalities in 5%-9.9% of the myocardium in patientswithout a history or prior evidence of OR 3. Stress-induced perfusionabnormality encumbering 5%-9.9% of the myocardium or stress segmental scoresindicating 1 vascular territory with abnormalities but without LV dilation 4.Small wall motion abnormality involving 1-2 segments and only 1 coronary bed.Low Risk (Less than 1% annual or OR) 1. Normal or small myocardialperfusion defect at rest or with stress encumbering less than 5% of themyocardium.Interpreted by:ALEX Marleyigned by:Jesús Caro MD02/17/17Final result Normal [facility] OVER READ - NCon 01-24-2017 OVER READ - NC DATE OF EXAM: Jan 24 2017 2:50PMCLINICAL HISTORY/ Name: ISI VINESTUDY:OVER READ- NC; 01/24/2017 2:50 pmINDICATION:score. Hypertension. Family history of heart disease. Former smoker. Screening.COMPARISON:None. CESSION NUMBER(S):[id number] CLINICIAN:ZOHRA SALGUERO:Contiguous unenhanced axial images were obtained [...] findings.This interpretation, provided by the radiologists of [facility], excludes evaluation of the cardiovascular system, which iscovered in a separate report issued by the ordering cardiologists. The radiologists of [facility] have no responsibilityfor evaluating the structures of the cardiovascular system. Normal [facility] Healthcar e Encounters Encounter Date Encounter Type Care Provider Facility Start: 05-24-2023 End: 05-24-2023 ambulatory ZOHRA SHAH Not Available Start: 03-08-2022 End: 03-08-2022 ambulatory Zohra Rodgersguerlinenigel Facility:[facility] Start: 03-08-2022 End: 03-08-2022 Patient encounter procedure DO Zohra Shah Work Phone: [facility] C[facility]-Covid Vaccine Off Site Start: 03-08-2022 ([facility] C Vac) [facility] Co vid Vaccine [facility] Start: 03-08-2022 End: 03-08-2022 ambulatory DO Zohra Shah Work Phone: [facility] Work Phone: Start: 09-24-2021 ([facility] C Vac) [facility] Co vid Vaccine [facility] Start: 09-24-2021 End: 09-24-2021 ambulatory Kvng Grissom [facility] [employer] Other Start: 01-26-2018 End: 01-27-2018 Patient encounter [facility] Start: 01-24-2018 End: 01-25-2018 Patient encounter [facility] Start: 01-12-2018 End: 01-13-2018 Patient encounter VEDA JOHNSON [facility] Start: 01-09-2018 End: 01-10-2018 Patient encounter [facility] Start: 01-05-2018 End: 01-06-2018 Patient encounter [facility] Start: 01-03-2018 End: 01-04-2018 Patient encounter BULAN Popeye [facility] Start: 12-27-2017 End: 12-28-2017 Patient encounter [facility] Start: 02-17-2017 End: 02-18-2017 Patient encounter [facility] Start: 01-24-2017 Ambulatory ZOHRA RODGERSGUERLINENigel Facility [...] Pfizer (bivalent) Hellen De La O Other [facility] Other 09-24-2021 COVID-19 Moderna Hellen De La O Other [facility] Other Payers Date Payer Category Payer Self-pay [id number] 2021 Unknown [id number] 2018 Medicare [id number] 2014 Unknown [id number] 1955 Unknown [id number] Private Health Insurance [facility] [id number] Unknown CACLIUM SCROING Unknown [id number] Unknown [id number] Social History Date Type Detail Facility Sex Assigned At [facility] [employer] Other Start: 07-02-2019 [facility] Start: 1955 Sex Assigned At Male F [facility] Evaluation note 03-08-2022 Note Date & Type Note Facility 03-08-2022 Evaluation note Encounter Date Diagnosis Assessment Notes Feb, Encounter for immunization (ICD-10 - Z23) Patient presents for COVID-19 vaccination BOOSTER. Pre-screening form answers evaluated with patient. Patient denies current illness or allergic reaction to component of COVID-19 vaccine. Patient provided with current copy of EUA. [facility] Other Evaluation note 09-24-2021 Note Date & Type Note Facility 09-24-2021 Evaluation note Encounter Date Diagnosis Assessment Notes Sep, Encounter for immunization (ICD-10 - Z23) Patient presents for COVID-19 vaccination BOOSTER. Pre-screening form answers evaluated with patient. Patient denies current illness or allergic reaction to component of COVID-19 vaccine. Patient provided with current copy of EUA. [facility] Other Evaluation note Note Date & Type Note Facility Evaluation note No assessment information availa [facility] Work Phone: Summary Purpose Family [...] section and content) DATE CREATED AUTHOR 12/06/2017 [facility] DATE CREATED AUTHOR AUTHOR'S ORGANIZ ATION 12/06/2017 [facility] DATE CREATED AUTHOR AUTHOR'S ORGANIZ ATION 01/27/2018 [facility] DATE CREATED AUTHOR AUTHOR'S ORGANIZ ATION 03/15/2022 [facility] DATE CREATED AUTHOR AUTHOR'S ORGANIZ ATION 05/26/2023 [facility] dical Specialists EPIC REASON FOR VISIT [...] BE BASED ON THE PRIMARY CLINICAL RECORDS. [facility] [employer] [facility]. provides no warranty or guarantee of the accuracy or completeness of information in this document.
== END 2023-07-13 10:19 | disposition home or self-care (01) ==
LOC: VC 10:18
PROVIDERS: PCP Radiology Diagnostic Radiology; Visit Provider Radiology Diagnostic Radiology
DX: I83.813 Varicose veins of bilateral lower extremities with pain (principal)
CPT/HCPCS: 36478

== ENCOUNTER 2023-07-18 09:17 | Outpatient (OUT) | payer MEDICARE, SELFPAY ==
--- NOTE | 2023-07-18 09:18 | VEIN_ITS ---
Patient Name: DEE VINES MR#: [id number] : 1955 Exam Date: 07/18/2023 Ordering Doctor: DR NORBERTO FLETCHER M.D. RADIOLOGY REPORT PROCEDURE: VC EXT VENOUS RT LMTD COMPARISON: None. INDICATIONS: I80.01 Phlebitis of superficial veins of rt lower extremity TECHNIQUE: Lower extremity brown scale and Duplex Doppler evaluation of the deep venous system from the inguinal ligament through the calf veins. FINDINGS: REGION: Right lower extremity. THROMBI: Negative for DVT. Heat induced thrombus visualized 1.7cm from the SFJ. The heat induced thrombus extends from groin to distal calf. COMPRESSIBILITY: Non-compressible segments corresponding to thrombus FLOW: Areas of no flow corresponding to thrombus OTHER: CONCLUSION: 1. Successful post ablation occlusion of right great saphenous vein. Dictated by: Lavon Medellin M.D. on 07/18/2023 at 10:58 Approved by: Lavon Medellin M.D. on 07/18/2023 at 10:59
--- NOTE | 2023-07-18 09:18 | VEIN_ITS ---
Patient Name: DEE VINES MR#: [id number] : 1955 Exam Date: 07/18/2023 Ordering Doctor: DR NORBERTO FLETCHER M.D. RADIOLOGY REPORT PROCEDURE: [facility] LMTD VEIN CENTER - OFFICE VISIT FOLLOW UP COMPARISON: [facility], 07/04/2023. PROGRESS NOTES: The patient reports improvement in leg symptoms. There has been interval reduction in varicosities. The patient has followed our recommendations to walk 20-30 minutes once or twice per day since the procedure. Physical exam demonstrates decrease in varicosities of the leg. Persistent varicosities are identified along the legs bilaterally. Review of the ultrasound performed the same day demonstrates occlusive thrombus extending throughout the treated vein(s), see separate report, consistent with a successful ablation. No thrombus extending into or beyond the saphenofemoral junction. The patient expressed a desire to proceed with treatment of remaining incompetent veins. The patient was informed that treatment was a process and would require several procedures/sessions. [facility] IM[facility]: 1. Successful ablation of the right great saphenous vein(s). 2. 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 PLAN: Endovenous laser ablation of left small saphenous vein. Nurse notes, history and physical were reviewed and confirmed, see attached forms. The nurse was present throughout the physical exam and consultation Dictated by: Lavon Medellin M.D. on 07/18/2023 at 10:59 Approved by: Lavon Medellin M.D. on 07/18/2023 at 10:59
--- OUTSIDE RECORDS SUMMARY | 2023-07-18 09:19 | XMS_ITS | CCD ---
Author Name Unknown Address [address] [place] [address] Organization [facility] Care Team Providers Care Concrete Block Layer Name Role Phone BRITTANIE ZOHRA Unavailable Unavailable VASCHAK, ZOHRA Unavailable Unavailable VASCHAK, ZOHRA Unavailable Unavailable VASCHAK, ZOHRA J Unavailable Unavailable VASCHAK, ZOHRA J Unavailable Unavailable VEDA JOHNSON Unavailable Unavailable VASCHAK, ZOHRA J Unavailable Unavailable VASCHAK, ZOHRA J Unavailable Unavailable VASCHAK, ZOHRA J Unavailable Unavailable VASCHAK, ZOHRA J Unavailable Unavailable VASCHAK, ZOHRA J Unavailable Unavailable VASCHAK, OZHRA J Unavailable Unavailable VASCHAK, ZOHRA J Unavailable [...] Care Provider MD Kvng Grissom Attending Provider [phone] Kvng Grissom Attending Unavailable Zohra Shah Primary Care Unavailable Kvng Grissom Admitting Unavailable Zohra Shah Primary Care Unavailable Kvng Grissom Admitting Unavailable Kvng Grissom Attending Unavailable ZOHRA SHAH Attending Unavailable VASCHAK, ZOHRA Popeye Referring Unavailable Allergies Allergy Classification Reported Allergen(s) Allergy Type Date of Onset Reaction(s) Facility (1 source) Penicillins Drug allergy (disorder) 07-02-2019 [facility] Repository Medications Current Medications Medication Drug [...] disease (2 sources) Atherosclerotic heart disease of [place] coronary artery without angina pectoris; Translations: [Coronary [...] CARDIAC STRESS TESTon 2016 CARDIAC STRESS TEST [facility] [address] [place] [address] CARDIAC STRESS TESTPATIENT NAME: DEE VINES : 1955MED REC NO: [id number] ROOM:ACCOUNT NO: [id number] ADMISSIONDATE: 02/17/2017PROVIDER: Dee BrisenoATE OF STUDY: 02/17/2017TREADMILL STRESS TESTINDICATION: CHEST [id number] % of maximum predicted heart rate: 157 [...] TO FOLLOW.DEE HANCOCKORD: 02/17/2017 10:58:57 MO/BB Normal [facility] NM MYOCARDIAL SPECT REST EXE RCISE OR [...] family history of heart diseaseFINDINGS:Images interpreted on Gear EnergyS system and Verifico software.There is normal distribution of radiotracer throughout [...] Revascularization in Patients With Stable Ischemic [facility] Volume 69, Issue 17October 2016High risk (>3% annual or CO) 1. Severe resting LV dysfunction (LVEF<35%) not [...] regadenoson)Intermediate risk (1% to 3% annual or CO) 1. Mild/moderate resting LVdysfunction (LVEF 35% to 49%) not readily explained by non coronary causes.2. Resting perfusion abnormalities in 5%-9.9% of the myocardium in patientswithout a history or prior evidence of CO 3. Stress-induced perfusionabnormality encumbering 5%-9.9% of the myocardium or stress segmental scoresindicating 1 vascular territory with abnormalities but without LV dilation 4.Small wall motion abnormality involving 1-2 segments and only 1 coronary bed.Low Risk (Less than 1% annual or CO) 1. Normal or small myocardialperfusion defect at rest or with stress encumbering less than 5% of themyocardium.Interpreted by:ALEX Marleyigned by:Jesús Caro MD02/17/17Final result Normal [facility] OVER READ - NCon 01-24-2017 OVER READ - NC DATE OF EXAM: Jan 24 2017 2:50PMCLINICAL HISTORY/ Name: ISI VINESTUDY:OVER READ- NC; 01/24/2017 2:50 pmINDICATION:score. Hypertension. Family history of heart disease. Former smoker. Screening.COMPARISON:None. CESSION NUMBER(S):[id number] CLINICIAN:ZOHRA SALGUERO:Contiguous unenhanced axial images were obtained [...] findings.This interpretation, provided by the radiologists of [facility], excludes evaluation of the cardiovascular system, which iscovered in a separate report issued by the ordering cardiologists. The radiologists of [facility] have no responsibilityfor evaluating the structures of the cardiovascular system. Normal [facility] Healthcar e Encounters Encounter Date Encounter Type Care Provider Facility Start: 05-24-2023 End: 05-24-2023 ambulatory ZOHRA SHAH Not Available Start: 03-08-2022 End: 03-08-2022 ambulatory Zohra Rodgersguerlinenigel Facility:[facility] Start: 03-08-2022 End: 03-08-2022 Patient encounter procedure DO Zohra Shah Work Phone: [facility] Ctr-Covid Vaccine Off Site Start: 03-08-2022 ([facility] C Vac) [facility] Co vid Vaccine [facility] Start: 03-08-2022 End: 03-08-2022 ambulatory DO Zohra Shah Work Phone: [facility] Work Phone: Start: 09-24-2021 ([facility] C Vac) [facility] Co vid Vaccine [facility] Start: 09-24-2021 End: 09-24-2021 ambulatory Kvng Grissom [facility] Other Start: 01-26-2018 End: 01-27-2018 Patient encounter [facility] Start: 01-24-2018 End: 01-25-2018 Patient encounter [facility] Start: 01-12-2018 End: 01-13-2018 Patient encounter VEDA JOHNSON [facility] Start: 01-09-2018 End: 01-10-2018 Patient encounter [facility] Start: 01-05-2018 End: 01-06-2018 Patient encounter [facility] Start: 01-03-2018 End: 01-04-2018 Patient encounter BRECKENRIDGE Popeye [facility] Start: 12-27-2017 End: 12-28-2017 Patient encounter [facility] Start: 02-17-2017 End: 02-18-2017 Patient encounter [facility] Start: 01-24-2017 Ambulatory ZOHRA RODGERSGUERLINENigel Facility :[id number] [...] Pfizer (bivalent) Hellen De La O Other [employer] Other 09-24-2021 COVID-19 Moderna Hellen De La O Other [employer] Other Payers Date Payer Category Payer Self-pay [id number] 2021 Unknown [id number] 2018 Medicare [id number] 2014 Unknown [id number] 1955 Unknown [id number] Private Health Insurance [facility] [id number] Unknown CACLIUM SCROING Unknown [id number] Unknown [id number] Social History Date Type Detail Facility Sex Assigned At [facility] [employer] Other Start: 07-02-[address] [facility] Start: 1955 Sex Assigned At Male F [facility] Evaluation note 03-08-2022 Note Date & Type Note Facility 03-08-2022 Evaluation note Encounter Date Diagnosis Assessment Notes Feb, Encounter for immunization (ICD-10 - Z23) Patient presents for COVID-19 vaccination BOOSTER. Pre-screening form answers evaluated with patient. Patient denies current illness or allergic reaction to component of COVID-19 vaccine. Patient provided with current copy of EUA. [employer] Other Evaluation note 09-24-2021 Note Date & Type Note Facility 09-24-2021 Evaluation note Encounter Date Diagnosis Assessment Notes Sep, Encounter for immunization (ICD-10 - Z23) Patient presents for COVID-19 vaccination BOOSTER. Pre-screening form answers evaluated with patient. Patient denies current illness or allergic reaction to component of COVID-19 vaccine. Patient provided with current copy of EUA. [employer] Other Evaluation note Note Date & Type Note Facility Evaluation note No assessment information availa [facility] Work Phone: Summary Purpose Family History [...] section and content) DATE CREATED AUTHOR 12/06/2017 [facility] DATE CREATED AUTHOR AUTHOR'S ORGANIZ ATION 12/06/2017 [facility] DATE CREATED AUTHOR AUTHOR'S ORGANIZ ATION 01/27/2018 [facility] DATE CREATED AUTHOR AUTHOR'S ORGANIZ ATION 03/15/2022 [facility] DATE CREATED AUTHOR AUTHOR'S ORGANIZ ATION 05/26/2023 [facility] dical Specialists EPIC REASON FOR VISIT [...] BE BASED ON THE PRIMARY CLINICAL RECORDS. [facility] [employer] [facility]. provides no warranty or guarantee of the accuracy or completeness of information in this document.
== END 2023-07-18 09:18 | disposition home or self-care (01) ==
LOC: VC 09:17
PROVIDERS: PCP Radiology Diagnostic Radiology; Visit Provider Radiology Diagnostic Radiology
DX: I80.01 Phlebitis and thrombophlebitis of superficial vessels of right lower extremity (principal)
CPT/HCPCS: 93971; G0463

== ENCOUNTER 2023-07-27 08:48 | Outpatient (OUT) | payer MEDICARE, SELFPAY ==
--- NOTE | 2023-07-27 08:49 | VEIN_ITS ---
[address] [address] Patient Name: DEE VINES MRN: [id number] date: 1955 Sex: M Assigned Patient Location: Current Patient Location: Accession/Order Number: [id number] Exam Date: 07/27/2023 08:50 Report Date: 07/27/2023 09:57 At the request of: NORBERTO FLETCHER Procedure: VC Endovenous Ablation 1VeinLT EXAMINATION: VC Endovenous Ablation 1VeinLT HISTORY: Pain due to varicose veins of bilateral legs I83.813 The risks and benefits of the procedure had been previously discussed, and were rediscussed at length. Informed written consent was obtained. Noman Francis RN and Leann Suazo RDMS, RVT assisted. Time out procedure was performed. The left lower extremity was prepared and draped in the usual sterile fashion to allow knee flexion in the sterile field. Duplex ultrasound probe was draped in a sterile cover, sterile transmission gel was used. Venous mapping was performed with the areas of dilation and large tributaries marked. The total length was 22 cm from the entry middistal- calf to 3 cm below the thigh extension vessel's penetration into the musculature. The diameter of the left small saphenous vein ranged from 5.5 mm. A 30 gauge needle and 1% buffered lidocaine was used to anesthetize the entry site. A 4 mm incision was made with a scalpel and the saphenous vein was entered percutaneously under direct ultrasound guidance with a micropuncture set, a single stick was successful in gaining access. A micro-guide wire was inserted and the needle removed. A micro-set including a dilator was inserted over the microwire and the needle and dilator were removed. A guide wire was inserted through the micro-set and guided through the saphenous vein to the saphenofemoral junction. The dilator was removed and an introducer sheath was inserted over the wire until the end of the sheath entered the saphenofemoral junction. The dilator and wire were removed and the 600 micron fiber was introduced and placed and positioned so that it extended beyond the sheath and was 3 cm distal to the saphenofemoral or saphenopopliteal junction. Final position of the fiber was determined by ultrasound guidance and duplex imaging. Tumescent anesthetic was delivered by ultrasound guidance. 150 cc of fluid was delivered along the entire course of the saphenous vein. The solution consisted of 1000 cc of normal saline with 40 mL of 1% lidocaine and 20 mL of sodium bicarbonate. A final positioning check was made. The energy source was turned on by means of the foot pedal and the fiber and sheath were withdrawn. The total number of Joules delivered was 1175. The laser was active for 147 seconds under continuous pulse, average laser use of 8 J. Laser start time 9:31 AM, 07/27/2023. Laser stop time 9:35 AM, 07/27/2023. A duplex ultrasound revealed compressibility and flow at the saphenofemoral junction immediately after the procedure. Hemostasis at the access site was achieved. The skin incision of the saphenous vein was closed with a 4 x 4. A compression stocking was applied. Postop instructions were given. A follow up appointment was recommended and scheduled. The patient tolerated the procedure well. Electronically authenticated by: SANDRO FLORES Date: 07/27/2023 09:57
[2023-07-27] MEDS: 0.9 % SODIUM CHLORIDE 500 ML, LIDOCAINE HCL 20 ML, SODIUM BICARBONATE 10 MEQ INJ (08:55)
[2023-07-27] MEDS: LIDOCAINE HCL 1% 100 MG/10 ML MDV INJ (08:55)
== END 2023-07-27 08:49 | disposition home or self-care (01) ==
LOC: VC 08:48
PROVIDERS: PCP Radiology Diagnostic Radiology; Visit Provider Radiology Diagnostic Radiology
DX: I83.813 Varicose veins of bilateral lower extremities with pain (principal)
CPT/HCPCS: 36478

== ENCOUNTER 2023-08-01 08:17 | Outpatient (OUT) | payer MEDICARE, SELFPAY ==
--- NOTE | 2023-08-01 08:18 | VEIN_ITS ---
Patient Name: DEE VINES MR#: [id number] : 1955 Exam Date: 08/01/2023 Ordering Doctor: DR NORBERTO FLETCHER M.D. RADIOLOGY REPORT PROCEDURE: [facility] EST LMTD VEIN CENTER - OFFICE VISIT FOLLOW UP [facility] PROGRESS NOTES: The patient reports improvement in leg symptoms. There has been interval reduction in varicosities. The patient has followed our recommendations to walk 20-30 minutes once or twice per day since the procedure. Physical exam demonstrates decrease in varicosities of the leg. Persistent varicose veins are identified along the legs bilaterally. Review of the ultrasound performed the same day demonstrates occlusive thrombus extending throughout the treated vein(s), see separate report, consistent with a successful ablation. No thrombus extending into or beyond the saphenofemoral junction. The patient expressed a desire to proceed with treatment of remaining incompetent varicosities. The patient was informed that treatment was a process and would require several procedures/sessions. VEIN/[facility] EST TD IMPRESSION: 1. Successful ablation of the left small saphenous vein(s). 2. Persistent varicose veins and lower extremity symptoms. PLAN: Microfoam chemical ablation of bilateral lower extremity branch saphenous varicosities; beginning on right. Nurse notes, history and physical were reviewed and confirmed, see attached forms. The nurse was present throughout the physical exam and consultation Dictated by: Lavon Medellin M.D. on 08/01/2023 at 08:45 Approved by: Lavon Medellin M.D. on 08/01/2023 at 08:47
--- NOTE | 2023-08-01 08:18 | VEIN_ITS ---
Patient Name: DEE VINES MR#: [id number] : 1955 Exam Date: 08/01/2023 Ordering Doctor: DR NORBERTO FLETCHER M.D. RADIOLOGY REPORT PROCEDURE: VC EXT VENOUS LT LIMITED COMPARISON: VC EXT VENOUS LT LIMITED, 07/04/2023. INDICATIONS: Phlebitis of superficial vein of lt lower extremity I80.02 TECHNIQUE: Lower extremity brown scale and Duplex Doppler evaluation of the deep venous system from the inguinal ligament through the calf veins. FINDINGS: REGION: Left lower extremity. THROMBI: Negative for DVT. Heat induced thrombus extends from distal thigh to distal calf. COMPRESSIBILITY: Non-compressible segments corresponding to thrombus FLOW: Areas of no flow corresponding to thrombus OTHER: CONCLUSION: 1. Successful post ablation occlusion of left small saphenous vein. Dictated by: Lavon Medellin M.D. on 08/01/2023 at 08:45 Approved by: Lavon Medellin M.D. on 08/01/2023 at 08:45
--- OUTSIDE RECORDS SUMMARY | 2023-08-01 08:20 | XMS_ITS | CCD ---
Author Name Unknown Address [address] [place] [address] Organization [facility] Care Team Providers Care Blood Bank Laboratory Professional Name Role Phone BRITTANIE ZOHRA Unavailable Unavailable [...] Unavailable DO Zohra Shah Primary Care Provider [phone] MD Kvng Grissom Attending Provider Kvng Grissom Attending Unavailable Zohra Shah Primary Care Unavailable Kvng Grissom Admitting Unavailable Zohra Shah Primary Care Unavailable Kvng Grissom Admitting Unavailable Kvng Grissom Attending Unavailable ZOHRA SHAH Attending Unavailable VASCHAK, ZOHRA Popeye Referring Unavailable Allergies Allergy Classification Reported Allergen(s) Allergy Type Date of Onset Reaction(s) Facility (1 source) Penicillins Drug allergy (disorder) 07-02-2019 [facility] Repository Medications Current Medications Medication Drug [...] disease (2 sources) Atherosclerotic heart disease of [place] coronary artery without angina pectoris; Translations: [Coronary [...] CARDIAC STRESS TESTon 2016 CARDIAC STRESS TEST [facility] [address] [place] [address] CARDIAC STRESS TESTPATIENT NAME: DEE VINES : 1955MED REC NO: [id number] ROOM:ACCOUNT NO: [id number] ADMISSIONDATE: 02/17/2017PROVIDER: Dee BrisenoATE OF STUDY: 02/17/2017TREADMILL STRESS TESTINDICATION: CHEST [id number] % of maximum predicted heart rate: 157 [...] HANCOCKORD: 02/17/2017 10:58:57 MO/BB Normal [facility] NM MYOCARDIAL SPECT REST EXE [...] family history of heart diseaseFINDINGS:Images interpreted on [employer] system and [employer] software.There is normal distribution of radiotracer throughout [...] Revascularization in Patients With Stable Ischemic Heart DiseaseLONG [facility] Volume 69, Issue 17October 2016High risk (>3% annual or MN) 1. Severe resting LV dysfunction (LVEF<35%) not [...] regadenoson)Intermediate risk (1% to 3% annual or MN) 1. Mild/moderate resting LVdysfunction (LVEF 35% to 49%) not readily explained by non coronary causes.2. Resting perfusion abnormalities in 5%-9.9% of the myocardium in patientswithout a history or prior evidence of MN 3. Stress-induced perfusionabnormality encumbering 5%-9.9% of the myocardium or stress segmental scoresindicating 1 vascular territory with abnormalities but without LV dilation 4.Small wall motion abnormality involving 1-2 segments and only 1 coronary bed.Low Risk (Less than 1% annual or MN) 1. Normal or small myocardialperfusion defect at rest or with stress encumbering less than 5% of themyocardium.Interpreted by:ALEX Marleyigned by:Jesús Caro MD02/17/17Final result Normal [facility] OVER READ - NCon 01-24-2017 OVER READ - NC DATE OF EXAM: Jan 24 2017 2:50PMCLINICAL HISTORY/ Name: ISI VINESTUDY:OVER READ- NC; 01/24/2017 2:50 pmINDICATION:score. Hypertension. Family history of heart disease. Former smoker. Screening.COMPARISON:None. CESSION NUMBER(S):[id number] CLINICIAN:ZOHRA SALGUERO:Contiguous unenhanced axial images were obtained [...] findings.This interpretation, provided by the radiologists of [facility], excludes evaluation of the cardiovascular system, which iscovered in a separate report issued by the ordering cardiologists. The radiologists of [facility] have no responsibilityfor evaluating the structures of the cardiovascular system. Normal [facility] Healthcar e Encounters Encounter Date Encounter Type Care Provider Facility Start: 05-24-2023 End: 05-24-2023 ambulatory ZOHRA SHAH Not Available Start: 03-08-2022 End: 03-08-2022 ambulatory Zohra Rodgersguerlinenigel Facility:[facility] Start: 03-08-2022 End: 03-08-2022 Patient encounter procedure DO Zohra Shah Work Phone: [facility] Vaccine Off Site Start: 03-08-2022 ([facility] C Vac) [facility] Co vid Vaccine [facility] Start: 03-08-2022 End: 03-08-2022 ambulatory DO Zohra Shah Work Phone: [facility] Work Phone: Start: 09-24-2021 ([facility] C Vac) [facility] Co vid Vaccine [facility] Start: 09-24-2021 End: 09-24-2021 ambulatory Kvng Grissom [facility] [employer] Other Start: 01-26-2018 End: 01-27-2018 Patient encounter [facility] Start: 01-24-2018 End: 01-25-2018 Patient encounter [facility] Start: 01-12-2018 End: 01-13-2018 Patient encounter VEDA JOHNSON [facility] Start: 01-09-2018 End: 01-10-2018 Patient encounter [facility] Start: 01-05-2018 End: 01-06-2018 Patient encounter [facility] Start: 01-03-2018 End: 01-04-2018 Patient encounter WAYLAND Popeye [facility] Start: 12-27-2017 End: 12-28-2017 Patient encounter [facility] Start: 02-17-2017 End: 02-18-2017 Patient encounter [facility] Start: 01-24-2017 Ambulatory ZOHRA RODGERSGUERLINENigel Facility :[id number] Start: 01-24-2017 Ambulatory Facility:[id number] Procedures Date Procedure Procedure Detail Performing Clinician Start: 02-20-2017 STRESS TEST REPORT MANA SHAH Start: 02-17-2017 Myocardial spect mul tiple studies ZOHRA SHAH Start: 02-17-2017 (GXT) STRESS TEST EX ERCISE W OUT MYOVIEW ZOHRA SHHA Immunizations Immunization Date Immunization Notes Care Provider Fa cility 03-08-2022 COVID-19 Pfizer (bivalent) Hellen [facility] Other [facility] Other 09-24-2021 COVID-19 Moderna Hellen De La O Other hike Other Payers Date Payer Category Payer Self-pay [id number] 2021 Unknown [id number] 2018 Medicare [id number] 2014 Unknown [id number] 1955 Unknown [id number] Private Health Insurance [facility] [id number] Unknown CACLIUM SCROING Unknown [id number] Unknown [id number] Social History Date Type Detail Facility Sex Assigned At [facility] [employer] Other Start: [facility]-02-[facility] Start: 1955 Sex Assigned At Male F [facility] Evaluation note 03-08-2022 Note Date & Type Note Facility 03-08-2022 Evaluation note Encounter Date Diagnosis Assessment Notes Feb, Encounter for immunization (ICD-10 - Z23) Patient presents for COVID-19 vaccination BOOSTER. Pre-screening form answers evaluated with patient. Patient denies current illness or allergic reaction to component of COVID-19 vaccine. Patient provided with current copy of EUA. [facility] Other Evaluation note 09-24-2021 Note Date & Type Note Facility 09-24-2021 Evaluation note Encounter Date Diagnosis Assessment Notes Sep, Encounter for immunization (ICD-10 - Z23) Patient presents for COVID-19 vaccination BOOSTER. Pre-screening form answers evaluated with patient. Patient denies current illness or allergic reaction to component of COVID-19 vaccine. Patient provided with current copy of EUA. hike Other Evaluation note Note Date & Type Note Facility Evaluation note No assessment information availa [facility] Work Phone: Summary Purpose Family [...] section and content) DATE CREATED AUTHOR 12/06/2017 [facility] DATE CREATED AUTHOR AUTHOR'S ORGANIZ ATION 12/06/2017 [facility] DATE CREATED AUTHOR AUTHOR'S ORGANIZ ATION 01/27/2018 [facility] DATE CREATED AUTHOR AUTHOR'S ORGANIZ ATION 03/15/2022 [facility] DATE CREATED AUTHOR AUTHOR'S ORGANIZ ATION 05/26/2023 [facility] dical Specialists EPIC REASON FOR VISIT [...] BE BASED ON THE PRIMARY CLINICAL RECORDS. [facility]. provides no warranty or guarantee of the accuracy or completeness of information in this document.
== END 2023-08-01 08:18 | disposition home or self-care (01) ==
LOC: VC 08:17
PROVIDERS: PCP Radiology Diagnostic Radiology; Visit Provider Radiology Diagnostic Radiology
DX: I80.02 Phlebitis and thrombophlebitis of superficial vessels of left lower extremity (principal)
CPT/HCPCS: 93971; G0463

== ENCOUNTER 2023-08-04 10:19 | Outpatient (OUT) | payer MEDICARE, SELFPAY ==
--- NOTE | 2023-08-04 10:19 | VEIN_ITS ---
[address] [address] Patient Name: DEE VINES MRN: [id number] date: 1955 Sex: M Assigned Patient Location: Current Patient Location: Accession/Order Number: [id number] Exam Date: 08/04/2023 10:35 Report Date: 08/04/2023 13:07 At the request of: NORBERTO FLETCHER Procedure: VC INJ Foam Sclerosant WUS SENIOR PRODUCER PROCEDURE: VC INJ Foam Sclerosant WUS SENIOR PRODUCER HISTORY: I83.813 Bilateral painful varicose veins Pre-operative Diagnosis: CEAP class C4a venous insufficiency with pain, tenderness, edema and incompetent branch saphenous vein(s), chronic venous insufficiency right leg secondary to venous incompetence Post-operative Diagnosis: CEAP class C4a venous insufficiency with pain, tenderness, edema and incompetent branch saphenous vein(s), chronic venous insufficiency right leg secondary to venous incompetence Procedure Performed: 1. Ultrasound-guided microfoam chemical ablation with Varithenaregistered 2. Intraoperative ultrasound guidance Physician: Lavon Medellin M.D. Anesthesia: None Indications for Procedure: 68 year old male. Symptoms including lower extremity pain, heaviness, dilated bulging veins for many years despite conservative medical therapy including medical compression stockings, exercise and analgesics. Prior procedures include endovenous laser ablation. Multiple incompetent varicosities of the right leg. Duplex scan showed reflux and enlarged diameters up to 4 mm. The patient underwent informed consent including management options where the complications of infection, bleeding, pain, and skin injury were discussed. Particular attention was spent discussing thrombus extension and deep vein thrombosis as well as the possibility of pulmonary embolus and treatment with oral or injectable blood thinners. Procedure: The patient walked to the procedure room. All applicable staff donned appropriate apparel. A procedure timeout was performed to confirm correct patient, correct extremity, correct procedure, and correct room set-up including presence of all applicable supplies, devices, and drugs. A duplex ultrasound, performed by myself confirmed the location and incompetence of branch saphenous varicosities and their course was marked on the skin together with the dilated tributaries. The extent of treatment of the vein and the associated varicosities was determined through ultrasound mapping. The skin was prepped and then punctured with a butterfly needle and advanced under ultrasound guidance. The Varithenaregistered canister was activated and the canister was primed and purged as required in the instructions for use. Varithenaregistered was drawn into a sterile syringe. Varithenaregistered was slowly administered at 0.5-1.0 cc/second with close observation by ultrasound of its course in the vessels. Total volume utilized was: 4 mL into a 4.2 mm varicosity within the proximal medial lower right leg. Following administration of Varithenaregistered the leg was elevated and the patient was asked to repeatedly dorsiflex the ankle to limit flow of Varithenaregistered into perforating veins. Once appropriate spasm had been confirmed in the treated veins, the vascular catheter was removed from the leg and light pressure was applied over the puncture site for hemostasis. The common femoral and deep superficial veins were then evaluated for flow and compressibility prior to dressing placement. The lower extremity was kept elevated at 45 degrees above the horizontal and cording material was applied over the saphenous segments and tributaries to allow for eccentric compression over the target vessels including the targeted saphenous vein(s). A multilayer dressing was applied consisting of foam pads, coban and thigh-high 20-30 mm Hg compression elastic support hose were placed on the patient. The leg was lowered only after compression had been applied and the patient was immediately ambulatory. The patient ambulated 10 minutes under supervision and was without apparent concerns at time of release. Post-care instructions include advising patient to keep post-treatment bandages in place and dry for 48 hours, avoid extended periods of inactivity, avoid heavy exercise for one week, wear compression stockings on the treated leg continuously for two weeks, to walk daily for 10 minutes over the next month. The patient was instructed to take an anti-inflammatory medicine as needed and to follow up for color duplex scan of the Saphenous veins, the treated branch saphenous varicosities, the adjacent deep veins, and additional treatment within 7 days. PERSONNEL: Stacy Man RN Electronically authenticated by: LAVON MEDELLIN Date: 08/04/2023 13:07
--- OUTSIDE RECORDS SUMMARY | 2023-08-04 10:26 | XMS_ITS | CCD ---
Author Name Unknown Address [address] [place] [address] Organization [facility] Care Team Providers Care Master Mechanic Name Role Phone BRITTANIE ZOHRA Unavailable Unavailable [...] (1 source) Penicillins Drug allergy (disorder) 07-02-2019 [facility] Repository Medications Current Medications Medication Drug [...] disease (2 sources) Atherosclerotic heart disease of [place] coronary artery without angina pectoris; Translations: [Coronary [...] TESTon 2016 CARDIAC STRESS TEST [facility] [address] [place] [address] CARDIAC STRESS TESTPATIENT NAME: DEE VINES : 1955MED REC NO: [id number] ROOM:ACCOUNT NO: [id number] ADMISSIONDATE: 02/17/2017PROVIDER: Dee BrisenoATE OF STUDY: 02/17/2017TREADMILL STRESS TESTINDICATION: CHEST [id number] % of maximum predicted heart rate: 157 [...] TO FOLLOW.DEE HANCOCKORD: 02/17/2017 10:58:57 MO/BB Normal [facility] NM MYOCARDIAL SPECT REST EXE RCISE [...] family history of heart diseaseFINDINGS:Images interpreted on L[employer]ix Bioph[employer]S system and i2we software.There is normal distribution of radiotracer throughout [...] Revascularization in Patients With [facility]schem[facility]ST[facility] Volume 69, Issue 17October 2016High risk (>3% annual or [place]) 1. Severe resting LV dysfunction (LVEF<35%) not [...] regadenoson)Intermediate risk (1% to 3% annual or [place]) 1. Mild/moderate resting LVdysfunction (LVEF 35% to 49%) not readily explained by non coronary causes.2. Resting perfusion abnormalities in 5%-9.9% of the myocardium in patientswithout a history or prior evidence of [place] 3. Stress-induced perfusionabnormality encumbering 5%-9.9% of the myocardium or stress segmental scoresindicating 1 vascular territory with abnormalities but without LV dilation 4.Small wall motion abnormality involving 1-2 segments and only 1 coronary bed.Low Risk (Less than 1% annual or [place]) 1. Normal or small myocardialperfusion defect at rest or with stress encumbering less than 5% of themyocardium.Interpreted by:ALEX Marleyigned by:Jesús Caro MD02/17/17Final result Normal [facility] OVER READ - NCon 01-24-2017 OVER READ - NC DATE OF EXAM: Jan 24 2017 2:50PMCLINICAL HISTORY/ Name: ISI VINESTUDY:OVER READ- NC; 01/24/2017 2:50 pmINDICATION:score. Hypertension. Family history of heart disease. Former smoker. Screening.COMPARISON:None. CESSION NUMBER(S):[id number] CLINICIAN:ZOHRA SALGUERO:Contiguous unenhanced axial images were obtained [...] findings.This interpretation, provided by the radiologists of [facility], excludes evaluation of the cardiovascular system, which iscovered in a separate report issued by the ordering cardiologists. The radiologists of [facility] have no responsibilityfor evaluating the structures of the cardiovascular system. Normal [facility] Healthcar e Encounters Encounter Date Encounter Type Care Provider Facility Start: 05-24-2023 End: 05-24-2023 ambulatory ZOHRA SHAH Not Available Start: 03-08-2022 End: 03-08-2022 ambulatory Zohra Rodgersguerlinenigel Facility:[facility] Start: 03-08-2022 End: 03-08-2022 Patient encounter procedure DO Zohra Shah Work Phone: [facility] Vaccine Off Site Start: 03-08-2022 ([facility] C Vac) [facility] Co vid Vaccine Hellen [facility] Start: 03-08-2022 End: 03-08-2022 ambulatory DO Zohra Shah Work Phone: [facility] Work Phone: Start: 09-24-2021 ([facility] C Vac) [facility] Co vid Vaccine Hellen [facility] Start: 09-24-2021 End: 09-24-2021 ambulatory Kvng Grissom [facility] [employer] Other Start: 01-26-2018 End: 01-27-2018 Patient encounter [facility] Start: 01-24-2018 End: 01-25-2018 Patient encounter [facility] Start: 01-12-2018 End: 01-13-2018 Patient encounter VEDA JOHNSON [facility] Start: 01-09-2018 End: 01-10-2018 Patient encounter [facility] Start: 01-05-2018 End: 01-06-2018 Patient encounter [facility] Start: 01-03-2018 End: 01-04-2018 Patient encounter BEE BRANCH Popeye [facility] Start: 12-27-2017 End: 12-28-2017 Patient encounter [facility] Start: 02-17-2017 End: 02-18-2017 Patient encounter [facility] Start: 01-24-2017 Ambulatory ZOHRA RODGERSGUERLINENigel Facility :[id number] [...] Pfizer (bivalent) Hellen De La O Other [employer] Other 09-24-2021 COVID-19 Moderna Hellen De La O Other [employer] Other Payers Date Payer Category Payer Self-pay [id number] 2021 Unknown [id number] 2018 Medicare [id number] 2014 Unknown [id number] 1955 Unknown [id number] Private Health Insurance [facility] [id number] Unknown CACLIUM SCROING Unknown [id number] Unknown [id number] Social History Date Type Detail Facility Sex Assigned At [facility] [place] Other Start: 07-02-2019 [facility] Start: 1955 Sex Assigned At Male F [facility] Evaluation note 03-08-2022 Note Date & Type Note Facility 03-08-2022 Evaluation note Encounter Date Diagnosis Assessment Notes Feb, Encounter for immunization (ICD-10 - Z23) Patient presents for COVID-19 vaccination BOOSTER. Pre-screening form answers evaluated with patient. Patient denies current illness or allergic reaction to component of COVID-19 vaccine. Patient provided with current copy of EUA. [employer] Other Evaluation note 09-24-2021 Note Date & Type Note Facility 09-24-2021 Evaluation note Encounter Date Diagnosis Assessment Notes Sep, Encounter for immunization (ICD-10 - Z23) Patient presents for COVID-19 vaccination BOOSTER. Pre-screening form answers evaluated with patient. Patient denies current illness or allergic reaction to component of COVID-19 vaccine. Patient provided with current copy of EUA. [employer] Other Evaluation note Note Date & Type Note Facility Evaluation note No assessment information availa [facility] Work Phone: Summary Purpose Family History [...] section and content) DATE CREATED AUTHOR 12/06/2017 [facility] DATE CREATED AUTHOR AUTHOR'S ORGANIZ ATION 12/06/2017 [facility] DATE CREATED AUTHOR AUTHOR'S ORGANIZ ATION 01/27/2018 [facility] DATE CREATED AUTHOR AUTHOR'S ORGANIZ ATION 03/15/2022 [facility] DATE CREATED AUTHOR AUTHOR'S ORGANIZ ATION 05/26/2023 [facility] dical Specialists EPIC REASON FOR VISIT [...] BE BASED ON THE PRIMARY CLINICAL RECORDS. [facility] [employer] [facility]. provides no warranty or guarantee of the accuracy or completeness of information in this document.
== END 2023-08-04 10:20 | disposition home or self-care (01) ==
LOC: VC 10:19
PROVIDERS: PCP Radiology Diagnostic Radiology; Visit Provider Radiology Diagnostic Radiology
DX: I83.813 Varicose veins of bilateral lower extremities with pain (principal)
CPT/HCPCS: 36466

== ENCOUNTER 2023-08-10 10:18 | Outpatient (OUT) | payer MEDICARE, SELFPAY ==
--- NOTE | 2023-08-10 10:21 | VEIN_ITS ---
Patient Name: DEE VINES MR#: [id number] : 1955 Exam Date: 08/10/2023 Ordering Doctor: DR KOTA CROOK M.D. RADIOLOGY REPORT PROCEDURE: VC EXT VENOUS RT LMTD COMPARISON: VC EXT VENOUS RT LMTD, 07/18/2023. INDICATIONS: Phlebitis of superficial veins of rt lower extremity I80.01 TECHNIQUE: Lower extremity brown scale and Duplex Doppler evaluation of the deep venous system from the inguinal ligament through the calf veins. FINDINGS: REGION: Left lower extremity. THROMBI: Negative for DVT. Varithena induced thrombus visualized at medial knee. COMPRESSIBILITY: Non-compressible segments corresponding to thrombus FLOW: Areas of no flow corresponding to thrombus OTHER: No patent varicose veins remain. CONCLUSION: Post ablation occlusion of treated right leg incompetent varicose veins. No residual right leg incompetent varicose veins remain Dictated by: Kota Crook MD on 08/10/2023 at 10:42 Approved by: Kota Crook MD on 08/10/2023 at 10:43
--- NOTE | 2023-08-10 10:23 | VEIN_ITS ---
Patient Name: DEE VINES MR#: [id number] : 1955 Exam Date: 08/10/2023 Ordering Doctor: DR KOTA CROOK M.D. RADIOLOGY REPORT PROCEDURE: FACILITY EST LMTD VEIN CENTER - OFFICE VISIT FOLLOW UP COMPARISON: [facility] EST LMTD, 08/01/2023. FACILITY EST LMTD, 07/18/2023. PROGRESS NOTES: The patient reports marked overall improvement in his initial presenting pain and swelling. The patient tolerated right leg micro foam chemical ablation with no significant discomfort. The patient did not require oral analgesics. The patient has worn his compression stocking. The patient has exercise as directed Physical exam demonstrates scattered thrombosed right leg varicose veins. No residual varicose veins remain. No subcutaneous edema. No erythema or warmth to suggest cellulitis or thrombophlebitis. No active ulceration Review of the ultrasound performed the same day demonstrates occlusive thrombus extending throughout the treated right leg varicose veins. No deep vein thrombus. No residual right leg varicose veins. The patient expressed a desire to proceed with treatment of incompetent left leg varicose veins with micro foam chemical ablation. VEIN/[facility] EST LMTD IMPRESSION: 1. Successful ablation of treated incompetent right leg varicose veins. 2. Persistent incompetent left leg varicose veins. PLAN: Micro foam chemical ablation incompetent left leg varicose veins Nurse notes, history and physical were reviewed and confirmed, see attached forms. The nurse was present throughout the physical exam and consultation Dictated by: Kota Crook MD on 08/10/2023 at 11:06 Approved by: Kota Crook MD on 08/10/2023 at 11:08
--- OUTSIDE RECORDS SUMMARY | 2023-08-10 10:29 | XMS_ITS | CCD ---
Author Name Unknown Address [address] [place] [address] Organization [facility] Care Team Providers Care Paint Maker Name Role Phone BRITTANIE ZOHRA Unavailable Unavailable [...] (1 source) Penicillins Drug allergy (disorder) 07-02-2019 [facility] Repository Medications Current Medications Medication [...] disease (2 sources) Atherosclerotic heart disease of [place] coronary artery without angina pectoris; Translations: [Coronary [...] CARDIAC STRESS TESTon 2016 CARDIAC STRESS TEST [facility] [address] [facility] [place] [address] CARDIAC STRESS TESTPATIENT NAME: DEE VINES : 1955MED REC NO: [id number] ROOM:ACCOUNT NO: [id number] ADMISSIONDATE: 02/17/2017PROVIDER: Dee BrisenoATE OF STUDY: 02/17/2017TREADMILL STRESS TESTINDICATION: CHEST [id number] % of maximum predicted heart rate: 157 [...] TO FOLLOW.DEE HANCOCKORD: 02/17/2017 10:58:57 MO/BB Normal [facility] NM MYOCARDIAL SPECT REST EXE RCISE [...] family history of heart diseaseFINDINGS:Images interpreted on KeenSkimS system and My Sourcebox software.There is normal distribution of radiotracer throughout [...] Revascularization in Patients With Stable Ischemic Heart [facility]GR[facility] Volume 69, Issue 17October 2016High risk (>3% annual or AK) 1. Severe resting LV dysfunction (LVEF<35%) not [...] regadenoson)Intermediate risk (1% to 3% annual or AK) 1. Mild/moderate resting LVdysfunction (LVEF 35% to 49%) not readily explained by non coronary causes.2. Resting perfusion abnormalities in 5%-9.9% of the myocardium in patientswithout a history or prior evidence of AK 3. Stress-induced perfusionabnormality encumbering 5%-9.9% of the myocardium or stress segmental scoresindicating 1 vascular territory with abnormalities but without LV dilation 4.Small wall motion abnormality involving 1-2 segments and only 1 coronary bed.Low Risk (Less than 1% annual or AK) 1. Normal or small myocardialperfusion defect at rest or with stress encumbering less than 5% of themyocardium.Interpreted by:ALEX Marleyigned by:Jesús Caro MD02/17/17Final result Normal [facility] OVER READ - NCon 01-24-2017 OVER READ - NC DATE OF EXAM: Jan 24 2017 2:50PMCLINICAL HISTORY/ Name: ISI VINESTUDY:OVER READ- NC; 01/24/2017 2:50 pmINDICATION:score. Hypertension. Family history of heart disease. Former smoker. Screening.COMPARISON:None. CESSION NUMBER(S):[id number] CLINICIAN:ZOHRA SALGUERO:Contiguous unenhanced axial images were obtained [...] findings.This interpretation, provided by the radiologists of [facility], excludes evaluation of the cardiovascular system, which iscovered in a separate report issued by the ordering cardiologists. The radiologists of [facility] have no responsibilityfor evaluating the structures of the cardiovascular system. Normal [facility] Healthcar e Encounters Encounter Date Encounter Type Care Provider Facility Start: 05-24-2023 End: 05-24-2023 ambulatory ZOHRA SHAH Not Available Start: 03-08-2022 End: 03-08-2022 ambulatory Zohra Rodgersguerlinenigel Facility:[facility] Start: 03-08-2022 End: 03-08-2022 Patient encounter procedure DO Zohra Shah Work Phone: [facility]-Covid Vaccine Off Site Start: 03-08-2022 ([facility]) [facility] Co vid Vaccine [facility] Start: 03-08-2022 End: 03-08-2022 ambulatory DO Zohra Shah Work Phone: [facility] Work Phone: Start: 09-24-2021 ([facility] Vac) [facility] Co vid Vaccine [facility] Start: 09-24-2021 End: 09-24-2021 ambulatory Kvng Grissom [facility] [employer] Other Start: 01-26-2018 End: 01-27-2018 Patient encounter [facility] Start: 01-24-2018 End: 01-25-2018 Patient encounter [facility] Start: 01-12-2018 End: 01-13-2018 Patient encounter VEDA JOHNSON [facility] Start: 01-09-2018 End: 01-10-2018 Patient encounter [facility] Start: 01-05-2018 End: 01-06-2018 Patient encounter [facility] Start: 01-03-2018 End: 01-04-2018 Patient encounter [place] [facility] Start: 12-27-2017 End: 12-28-2017 Patient encounter [facility] Start: 02-17-2017 End: 02-18-2017 Patient encounter [facility] Start: 01-24-2017 Ambulatory ZOHRA RODGERSGUERLINENigel Facility [...] Pfizer (bivalent) Hellen [facility] Other [employer] Other 09-24-2021 COVID-19 Moderna Hellen [facility] La O Other [employer] Other Payers Date Payer Category Payer Self-pay [id number] 2021 Unknown [id number] 2018 Medicare [id number] 2014 Unknown [id number] 1955 Unknown [id number] Private Health Insurance [facility] [id number] Unknown CACLIUM SCROING Unknown [id number] Unknown [id number] Social History Date Type Detail Facility Sex Assigned At [facility] [employer] Other Start: [facility]02[facility] Start: 1955 Sex Assigned At Male [facility] Evaluation note 03-08-2022 Note Date & Type Note Facility 03-08-2022 Evaluation note Encounter Date Diagnosis Assessment Notes Feb, Encounter for immunization (ICD-10 - Z23) Patient presents for COVID-19 vaccination BOOSTER. Pre-screening form answers evaluated with patient. Patient denies current illness or allergic reaction to component of COVID-19 vaccine. Patient provided with current copy of EUA. [employer] Other Evaluation note 09-24-2021 Note Date & Type Note Facility 09-24-2021 Evaluation note Encounter Date Diagnosis Assessment Notes Sep, Encounter for immunization (ICD-10 - Z23) Patient presents for COVID-19 vaccination BOOSTER. Pre-screening form answers evaluated with patient. Patient denies current illness or allergic reaction to component of COVID-19 vaccine. Patient provided with current copy of EUA. [employer] Other Evaluation note Note Date & Type Note Facility Evaluation note No assessment information availa [facility] Work Phone: Summary Purpose Family [...] and content) DATE CREATED AUTHOR 12/06/2017 [facility] DATE CREATED AUTHOR AUTHOR'S ORGANIZ ATION 12/06/2017 [facility] DATE CREATED AUTHOR AUTHOR'S ORGANIZ ATION 01/27/2018 [facility] DATE CREATED AUTHOR AUTHOR'S ORGANIZ ATION 03/15/2022 [facility] DATE CREATED AUTHOR AUTHOR'S ORGANIZ ATION 05/26/2023 [facility] dical Specialists EPIC REASON FOR [...] BE BASED ON THE PRIMARY CLINICAL RECORDS. [facility] [employer] [facility]. provides no warranty or guarantee of the accuracy or completeness of information in this document.
== END 2023-08-10 10:19 | disposition home or self-care (01) ==
LOC: VC 10:19
PROVIDERS: PCP Radiology Diagnostic Radiology; Visit Provider Radiology Diagnostic Radiology
DX: I80.01 Phlebitis and thrombophlebitis of superficial vessels of right lower extremity (principal)
CPT/HCPCS: 93971; G0463

== ENCOUNTER 2023-08-18 07:48 | Outpatient (OUT) | payer MEDICARE, SELFPAY ==
--- NOTE | 2023-08-18 07:49 | VEIN_ITS ---
[address] [address] Patient Name: DEE VINES MRN: [id number] date: 1955 Sex: M Assigned Patient Location: Current Patient Location: Accession/Order Number: [id number] Exam Date: 08/18/2023 07:49 Report Date: 08/18/2023 09:45 At the request of: NORBERTO FLETCHER Procedure: VC INJ Foam Sclerosant WUS WARE DRESSER PROCEDURE: VC INJ Foam Sclerosant WUS WARE DRESSER HISTORY: I83.813 Bilateral painful varicose veins Pre-operative Diagnosis: CEAP class C4a venous insufficiency with pain, tenderness, edema and incompetent branch saphenous vein(s), chronic venous insufficiency left leg secondary to venous incompetence Post-operative Diagnosis: CEAP class C4a venous insufficiency with pain, tenderness, edema and incompetent branch saphenous vein(s), chronic venous insufficiency left leg secondary to venous incompetence Procedure Performed: 1. Ultrasound-guided microfoam chemical ablation with Varithenaregistered 2. Intraoperative ultrasound guidance Physician: Lavon Medellin M.D. Anesthesia: None Indications for Procedure: 68 year old male. Symptoms including bulging dilated veins, lower extremity pain, cramping, swelling for many years despite conservative medical therapy including medical compression stockings, exercise and analgesics. Prior procedures include endovenous laser ablation and microfoam chemical ablation. Multiple incompetent varicosities of the left leg. Duplex scan showed reflux and enlarged diameters up to 7 mm. The patient underwent informed consent including management options where the complications of infection, bleeding, pain, and skin injury were discussed. Particular attention was spent discussing thrombus extension and deep vein thrombosis as well as the possibility of pulmonary embolus and treatment with oral or injectable blood thinners. Procedure: The patient walked to the procedure room. All applicable staff donned appropriate apparel. A procedure timeout was performed to confirm correct patient, correct extremity, correct procedure, and correct room set-up including presence of all applicable supplies, devices, and drugs. A duplex ultrasound, performed by myself confirmed the location and incompetence of branch saphenous varicosities and their course was marked on the skin together with the dilated tributaries. The extent of treatment of the vein and the associated varicosities was determined through ultrasound mapping. The skin was prepped and then punctured with a butterfly needle and advanced under ultrasound guidance. The Varithenaregistered canister was activated and the canister was primed and purged as required in the instructions for use. Varithenaregistered was drawn into a sterile syringe. Varithenaregistered was slowly administered at 0.5-1.0 cc/second with close observation by ultrasound of its course in the vessels. Total volume utilized was: 12 mL (8 mL into a 7 mm varicosity of the mid medial lower left leg; 4 mL into a 4 mm varicosity distal medial lower left leg). Following administration of Varithenaregistered the leg was elevated and the patient was asked to repeatedly dorsiflex the ankle to limit flow of Varithenaregistered into perforating veins. Once appropriate spasm had been confirmed in the treated veins, the vascular catheter was removed from the leg and light pressure was applied over the puncture site for hemostasis. The common femoral and deep superficial veins were then evaluated for flow and compressibility prior to dressing placement. The lower extremity was kept elevated at 45 degrees above the horizontal and cording material was applied over the saphenous segments and tributaries to allow for eccentric compression over the target vessels including the targeted saphenous vein(s). A multilayer dressing was applied consisting of foam pads, coban and thigh-high 20-30 mm Hg compression elastic support hose were placed on the patient. The leg was lowered only after compression had been applied and the patient was immediately ambulatory. The patient ambulated 10 minutes under supervision and was without apparent concerns at time of release. Post-care instructions include advising patient to keep post-treatment bandages in place and dry for 48 hours, avoid extended periods of inactivity, avoid heavy exercise for one week, wear compression stockings on the treated leg continuously for two weeks, to walk daily for 10 minutes over the next month. The patient was instructed to take an anti-inflammatory medicine as needed and to follow up for color duplex scan of the Saphenous veins, the treated branch saphenous varicosities, the adjacent deep veins, and additional treatment within 7 days. PERSONNEL: Stacy Man RN Electronically authenticated by: LAVON MEDELLIN Date: 08/18/2023 09:45
--- OUTSIDE RECORDS SUMMARY | 2023-08-18 07:50 | XMS_ITS | CCD ---
Author Name Unknown Address [address] [place] [address] Organization [facility] Care Team Providers Care Labor Conciliator Name Role Phone ZOHRA SHAH Unavailable Unavailable VASCHAK, ZOHRA Unavailable Unavailable VASCHAK, [...] Penicillins Drug allergy (disorder) 07-02-[address] [facility] Repository Medications Current Medications Medication [...] disease (2 sources) Atherosclerotic heart disease of [place] coronary artery without angina pectoris; Translations: [Coronary [...] CARDIAC STRESS TESTon 2016 CARDIAC STRESS TEST [facility] [address] [facility] [place] [address] CARDIAC STRESS TESTPATIENT NAME: DEE VINES : 1955MED REC NO: [id number] ROOM:ACCOUNT NO: [id number] ADMISSIONDATE: 02/17/2017PROVIDER: Dee BrisenoATE OF STUDY: 02/17/2017TREADMILL STRESS TESTINDICATION: CHEST [id number] % of maximum predicted heart rate: 157 [...] TO FOLLOW.DEE HANCOCKORD: 02/17/2017 10:58:57 MO/BB Normal [facility] NM MYOCARDIAL SPECT REST EXE RCISE OR [...] family history of heart diseaseFINDINGS:Images interpreted on PredictionIOS system and Verdiem software.There is normal distribution of radiotracer throughout [...] Revascularization in Patients With Stable Ischemic [facility] Volume 69, Issue 17October 2016High risk (>3% annual or DC) 1. Severe resting LV dysfunction (LVEF<35%) not [...] regadenoson)Intermediate risk (1% to 3% annual or DC) 1. Mild/moderate resting LVdysfunction (LVEF 35% to 49%) not readily explained by non coronary causes.2. Resting perfusion abnormalities in 5%-9.9% of the myocardium in patientswithout a history or prior evidence of DC 3. Stress-induced perfusionabnormality encumbering 5%-9.9% of the myocardium or stress segmental scoresindicating 1 vascular territory with abnormalities but without LV dilation 4.Small wall motion abnormality involving 1-2 segments and only 1 coronary bed.Low Risk (Less than 1% annual or DC) 1. Normal or small myocardialperfusion defect at rest or with stress encumbering less than 5% of themyocardium.Interpreted by:ALEX Marleyigned by:Jesús Caro MD02/17/17Final result Normal [facility] OVER READ - NCon 01-24-2017 OVER READ - NC DATE OF EXAM: Jan 24 2017 2:50PMCLINICAL HISTORY/ Name: ISI VINESTUDY:OVER READ- NC; 01/24/2017 2:50 pmINDICATION:score. Hypertension. Family history of heart disease. Former smoker. Screening.COMPARISON:None. CESSION NUMBER(S):[id number] CLINICIAN:ZOHRA SALGUERO:Contiguous unenhanced axial images were obtained [...] findings.This interpretation, provided by the radiologists of [facility], excludes evaluation of the cardiovascular system, which iscovered in a separate report issued by the ordering cardiologists. The radiologists of [facility] have no responsibilityfor evaluating the structures of the cardiovascular system. Normal [facility] Encounters Encounter Date Encounter Type Care Provider Facility Start: 05-24-2023 End: 05-24-2023 ambulatory ZOHRA SHAH Not Available Start: 03-08-2022 End: 03-08-2022 ambulatory Zohra Rodgersguerlinenigel Facility:[facility] Start: 03-08-2022 End: 03-08-2022 Patient encounter procedure DO Zohra Shah Work Phone: [facility]-Covid Vaccine Off Site Start: 03-08-2022 ([facility] C Vac) [facility] Co vid Vaccine [facility] Start: 03-08-2022 End: 03-08-2022 ambulatory DO Zohra Shah Work Phone: [facility] Work Phone: Start: 09-24-2021 ([facility] C Vac) [facility] Co vid Vaccine [facility] Start: 09-24-2021 End: 09-24-2021 ambulatory Kvng Grissom [facility] Other Start: 01-26-2018 End: 01-27-2018 Patient encounter [facility] Start: 01-24-2018 End: 01-25-2018 Patient encounter [facility] Start: 01-12-2018 End: 01-13-2018 Patient encounter VEDA JOHNSON [facility] Start: 01-09-2018 End: 01-10-2018 Patient encounter [facility] Start: 01-05-2018 End: 01-06-2018 Patient encounter [facility] Start: 01-03-2018 End: 01-04-2018 Patient encounter [facility] Start: 12-27-2017 End: 12-28-2017 Patient encounter [facility] Start: 02-17-2017 End: 02-18-2017 Patient encounter [facility] Start: 01-24-2017 Ambulatory ZOHRA RODGERSGUERLINENigel Facility :[id number] [...] Pfizer (bivalent) Hellen De La O Other [employer] Other 09-24-2021 COVID-19 Moderna Hellen De La O Other [employer] Other Payers Date Payer Category Payer Self-pay [id number] 2021 Unknown [id number] 2018 Medicare [id number] 2014 Unknown [id number] 1955 Unknown [id number] Private Health Insurance [facility] [id number] Unknown [employer]UM SCROING Unknown [id number] Unknown [id number] Social History Date Type Detail Facility Sex Assigned At [facility] [employer] Other Start: 07-02-[address] [facility] Start: 1955 Sex Assigned At Male [facility] Evaluation note 03-08-2022 Note Date & Type Note Facility 03-08-2022 Evaluation note Encounter Date Diagnosis Assessment Notes Feb, Encounter for immunization (ICD-10 - Z23) Patient presents for COVID-19 vaccination BOOSTER. Pre-screening form answers evaluated with patient. Patient denies current illness or allergic reaction to component of COVID-19 vaccine. Patient provided with current copy of EUA. [employer] Other Evaluation note 09-24-2021 Note Date & Type Note Facility 09-24-2021 Evaluation note Encounter Date Diagnosis Assessment Notes Sep, Encounter for immunization (ICD-10 - Z23) Patient presents for COVID-19 vaccination BOOSTER. Pre-screening form answers evaluated with patient. Patient denies current illness or allergic reaction to component of COVID-19 vaccine. Patient provided with current copy of EUA. [employer] Other Evaluation note Note Date & Type Note Facility Evaluation note No assessment information availa [facility] Work Phone: Summary Purpose Family [...] section and content) DATE CREATED AUTHOR 12/06/2017 [facility] DATE CREATED AUTHOR AUTHOR'S ORGANIZ ATION 12/06/2017 [facility] DATE CREATED AUTHOR AUTHOR'S ORGANIZ ATION 01/27/2018 [facility] DATE CREATED AUTHOR AUTHOR'S ORGANIZ ATION 03/15/2022 [facility] DATE CREATED AUTHOR AUTHOR'S ORGANIZ ATION 05/26/2023 [facility] dical Specialists EPIC REASON FOR VISIT [...] BE BASED ON THE PRIMARY CLINICAL RECORDS. [facility] [employer] [facility]. provides no warranty or guarantee of the accuracy or completeness of information in this document.
== END 2023-08-18 07:49 | disposition home or self-care (01) ==
LOC: VC 07:48
PROVIDERS: PCP Radiology Diagnostic Radiology; Visit Provider Radiology Diagnostic Radiology
DX: I83.813 Varicose veins of bilateral lower extremities with pain (principal)
CPT/HCPCS: 36466

== ENCOUNTER 2023-08-24 08:37 | Outpatient (OUT) | payer MEDICARE, SELFPAY ==
--- NOTE | 2023-08-24 | VEIN_ITS ---
Patient Name: DEE VINES MR#: [id number] : 1955 Exam Date: 08/24/2023 Ordering Doctor: DR NORBERTO FLETCHER M.D. RADIOLOGY REPORT PROCEDURE[facility] VEIN CENTER - OFFICE VISIT FOLLOW UP [facility] PROGRESS NOTES: The patient reports improvement in leg symptoms. There has been interval reduction in varicosities. The patient has followed our recommendations to walk 20-30 minutes once or twice per day since the procedure. Physical exam demonstrates decrease in varicosities of the leg. No visible remaining varicosities involving the right and left leg. Review of the ultrasound performed the same day demonstrates occlusive thrombus extending throughout the treated vein(s), see separate report, consistent with a successful ablation. No thrombus extending into or beyond the saphenofemoral junction. No remaining varicosities bilaterally. VEIN/[facility] EST TD IMPRESSION: 1. Successful ablation of the all remaining dilated/incompetent branch saphenous vein(s). PLAN: Follow-up in future with vein center as needed. Nurse notes, history and physical were reviewed and confirmed, see attached forms. The nurse was present throughout the physical exam and consultation Dictated by: Lavon Medellin M.D. on 08/24/2023 at 09:18 Approved by: Lavon Medellin M.D. on 08/24/2023 at 09:22
--- NOTE | 2023-08-24 | VEIN_ITS ---
Patient Name: DEE VINES MR#: [id number] : 1955 Exam Date: 08/24/2023 Ordering Doctor: DR NORBERTO FLETCHER M.D. RADIOLOGY REPORT PROCEDURE: VC EXT VENOUS LT LIMITED COMPARISON: VC EXT VENOUS LT LIMITED, 08/01/2023. INDICATIONS: Phlebitis of superficial vein of lt lower extremity I80.02 TECHNIQUE: Lower extremity brown scale and Duplex Doppler evaluation of the deep venous system from the inguinal ligament through the calf veins. FINDINGS: REGION: Left lower extremity. THROMBI: Negative for DVT. Varithena induced thrombus visualized at mid/med calf and dist/med calf. COMPRESSIBILITY: Non-compressible segments corresponding to thrombus FLOW: Areas of no flow corresponding to thrombus OTHER: No patent varicose veins visualized. CONCLUSION: 1. Successful post ablation occlusion of left leg treated branch saphenous varicosities. Dictated by: Lavon Medellin M.D. on 08/24/2023 at 09:16 Approved by: Lavon Medellin M.D. on 08/24/2023 at 09:18
--- OUTSIDE RECORDS SUMMARY | 2023-08-24 08:52 | XMS_ITS | CCD ---
Author Name Unknown Address [address] [place] [address] Organization [facility] Care Team Providers [employer] Salesperson Name Role Phone ZOHRA SHAH Unavailable Unavailable [...] Unavailable DO Zohra Shah Primary Care Provider [phone] MD Kvng Grissom Attending Provider Kvng Grissom Attending Unavailable Zohra Shah Primary Care Unavailable Kvng Grissom Admitting Unavailable Zohra Shah Primary Care Unavailable Kvng Grissom Admitting Unavailable Kvng Grissom Attending Unavailable ZOHRA SHAH Attending Unavailable VASCHAK, ZOHRA Popeye Referring Unavailable Allergies Allergy Classification Reported Allergen(s) Allergy Type Date of Onset Reaction(s) Facility (1 source) Penicillins Drug allergy (disorder) 07-02-2019 [facility] Repository Medications Current Medications Medication Drug [...] disease (2 sources) Atherosclerotic heart disease of kaibab coronary artery without angina pectoris; Translations: [Coronary [...] CARDIAC STRESS TESTon 2016 CARDIAC STRESS TEST [facility] [address] [place] [address] CARDIAC STRESS TESTPATIENT NAME: DEE VINES : 1955MED REC NO: [id number] ROOM:ACCOUNT NO: [id number] ADMISSIONDATE: 02/17/2017PROVIDER: Dee BrisenoATE OF STUDY: 02/17/2017TREADMILL STRESS TESTINDICATION: CHEST CROF016 % of maximum predicted heart rate: 157 [...] TO FOLLOW.DEE HANCOCKORD: 02/17/2017 10:58:57 MO/BB Normal [facility] NM MYOCARDIAL SPECT REST EXE RCISE [...] family history of heart diseaseFINDINGS:Images interpreted on [employer] system and [employer] software.There is normal distribution of radiotracer throughout [...] Issue 17October 2016High risk (>3% annual or WA) 1. Severe resting LV dysfunction (LVEF<35%) not [...] regadenoson)Intermediate risk (1% to 3% annual or WA) 1. Mild/moderate resting LVdysfunction (LVEF 35% to 49%) not readily explained by non coronary causes.2. Resting perfusion abnormalities in 5%-9.9% of the myocardium in patientswithout a history or prior evidence of WA 3. Stress-induced perfusionabnormality encumbering 5%-9.9% of the myocardium or stress segmental scoresindicating 1 vascular territory with abnormalities but without LV dilation 4.Small wall motion abnormality involving 1-2 segments and only 1 coronary bed.Low Risk (Less than 1% annual or WA) 1. Normal or small myocardialperfusion defect at rest or with stress encumbering less than 5% of themyocardium.Interpreted by:ALEX Marleyigned by:Jesús Caro MD02/17/17Final result Normal [facility] OVER READ - NCon 01-24-2017 OVER READ - NC DATE OF EXAM: Jan 24 2017 2:50PMCLINICAL HISTORY/ Name: ISI VINESTUDY:OVER READ- NC; 01/24/2017 2:50 pmINDICATION:score. Hypertension. Family history of heart disease. Former smoker. Screening.COMPARISON:None. CESSION NUMBER(S):[id number] CLINICIAN:ZOHRA SALGUERO:Contiguous unenhanced axial images were obtained [...] findings.This interpretation, provided by the radiologists of [facility], excludes evaluation of the cardiovascular system, which iscovered in a separate report issued by the ordering cardiologists. The radiologists of [facility] have no responsibilityfor evaluating the structures of the cardiovascular system. Normal [facility] Health[facility] e Encounters Encounter Date Encounter Type Care Provider Facility Start: 05-24-2023 End: 05-24-2023 ambulatory ZOHRA SHAH Not Available Start: 03-08-2022 End: 03-08-2022 ambulatory Zohra Rodgersguerlinenigel Facility:[facility] Start: 03-08-2022 End: 03-08-2022 Patient encounter procedure DO Zohra Shah Work Phone: [facility] Vaccine Off Site Start: 03-08-2022 ([facility] C Vac) [facility] Start: 03-08-2022 End: 03-08-2022 ambulatory DO Zohra Shah Work Phone: [facility] Work Phone: Start: 09-24-2021 ([facility] C Vac) [facility] vid [facility] Start: 09-24-2021 End: 09-24-2021 ambulatory Kvng Grissom [facility] [employer] Other Start: 01-26-2018 End: 01-27-2018 Patient encounter [facility] Start: 01-24-2018 End: 01-25-2018 Patient encounter [facility] Start: 01-12-2018 End: 01-13-2018 Patient encounter VEDA JOHNSON [facility] Start: 01-09-2018 End: 01-10-2018 Patient encounter [facility] Start: 01-05-2018 End: 01-06-2018 Patient encounter [facility] Start: 01-03-2018 End: 01-04-2018 Patient encounter VALDEZ Popeye [facility] Start: 12-27-2017 End: 12-28-2017 Patient encounter [facility] Start: 02-17-2017 End: 02-18-2017 Patient encounter [facility] Start: 01-24-2017 Ambulatory ZOHRA RODGERSGUERLINENigel Facility [...] Pfizer (bivalent) [facility] Other [employer] Other 09-24-2021 COVID-19 Moderna [facility] [employer] Other Payers Date Payer Category Payer Self-pay [id number] 2021 Unknown [id number] 2018 Medicare [id number] 2014 Unknown [id number] 1955 Unknown [id number] Private Health Insurance [facility] [id number] Unknown CACLIUM SCROING Unknown [id number] Unknown [id number] Social History Date Type Detail Facility Sex Assigned At [facility]ly [facility] [employer] Other Start: 07-02-2019 [facility] Start: 1955 Sex Assigned At Male [facility] Evaluation note 03-08-2022 Note Date & Type Note Facility 03-08-2022 Evaluation note Encounter Date Diagnosis Assessment Notes Feb, Encounter for immunization (ICD-10 - Z23) Patient presents for COVID-19 vaccination BOOSTER. Pre-screening form answers evaluated with patient. Patient denies current illness or allergic reaction to component of COVID-19 vaccine. Patient provided with current copy of EUA. [employer] Other Evaluation note 09-24-2021 Note Date & Type Note Facility 09-24-2021 Evaluation note Encounter Date Diagnosis Assessment Notes Sep, Encounter for immunization (ICD-10 - Z23) Patient presents for COVID-19 vaccination BOOSTER. Pre-screening form answers evaluated with patient. Patient denies current illness or allergic reaction to component of COVID-19 vaccine. Patient provided with current copy of EUA. [employer] Other Evaluation note Note Date & Type Note Facility Evaluation note No assessment information availa [facility] Work Phone: Summary Purpose Family History [...] section and content) DATE CREATED AUTHOR 12/06/2017 [facility] DATE CREATED AUTHOR AUTHOR'S ORGANIZ ATION 12/06/2017 [facility] DATE CREATED AUTHOR AUTHOR'S ORGANIZ ATION 01/27/2018 [facility] DATE CREATED AUTHOR AUTHOR'S ORGANIZ ATION 03/15/2022 [facility] DATE CREATED AUTHOR AUTHOR'S ORGANIZ ATION 05/26/2023 [facility] EPIC REASON FOR VISIT (unrecogniz ed section and content) MODERNA VACCINE BOOSTER-2PFI ZER BIVALENT BOOSTER Care Teams (unrecognized sec tion and content) Team Status: Inactive Member Role Status Dates Zohra Shah DO Primary Care Provider Active Kvng Grissmo MD Attending Provider Active Team Status: Active [...] BE BASED ON THE PRIMARY CLINICAL RECORDS. [facility] [employer] [facility]. provides no warranty or guarantee of the accuracy or completeness of information in this document.
== END 2023-08-24 08:38 | disposition home or self-care (01) ==
LOC: VC 08:46
PROVIDERS: PCP Radiology Diagnostic Radiology; Visit Provider Radiology Diagnostic Radiology
DX: I80.02 Phlebitis and thrombophlebitis of superficial vessels of left lower extremity (principal)
CPT/HCPCS: 93971; G0463